=== PATIENT | female | born 1995 | race Caucasian/White ===

== ENCOUNTER 2019-04-05 09:39 | Emergency (ER) | payer OTHER, SELFPAY ==
--- NOTE | 2019-04-05 09:51 | ED.GENADULT ---
HPI - General Adult General Chief complaint: Upper Respiratory Infection Stated complaint: Cough,Fever Time Seen by Provider: 04/05/19 10:07 Source: patient and RN notes reviewed Mode of arrival: ambulatory Limitations: no limitations History of Present Illness HPI narrative: This patient onset of a cough yesterday evening on 04/04/2019. She has had cough productive of phlegm which is yellow-green. She has had no chest pain or shortness of breath. She had a fever last night to 100 degrees. She took Tylenol it did bring it down. She is 16 weeks . She has not had any ear pain or drainage from the ears. She has had no nasal drainage. She has had no sore throat. She is had no rashes. There is been no nausea, no vomiting, no diarrhea. She has had no hematuria, no dysuria, no pyuria. She has had no rashes. She has had exposure to her fianc? who tested positive for influenza yesterday. She does not know the type of influenza he was diagnosed as having. She was given a prescription for Tamiflu yesterday. She has not been traveling. No other exposure to anyone with strep throat, mono, influenza, bronchitis, pneumonia that they are aware of. Related Data Home Medications Medication Instructions Recorded Confirmed oseltamivir [Tamiflu] 75 mg PO DAILY 04/05/19 04/05/19 Allergies Allergy/AdvReac Type Severity Reaction Status Date / Time hydrocodone Allergy Unknown Unknown Verified 04/05/19 10:15 Review of Systems Review of Systems: Narrative: CONSTITUTIONAL: Denies fever, chills, or sweats. EYES: Denies visual changes, redness, or discharge. ENT: Denies rhinorrhea, congestion, sore throat, or otalgia. CARDIOVASCULAR: Denies chest pain, palpitations, or edema. RESPIRATORY: Denies cough or dyspnea. GASTROINTESTINAL: Denies abdominal pain, nausea, vomiting, or diarrhea. GENITOURINARY: Denies dysuria or hematuria. SKIN: Denies rash or itching. MUSCULOSKELETAL: Denies back pain, joint pain, or myalgia. NEUROLOGIC: Denies headache, numbness, or weakness. PSYCHIATRIC: Denies anxiety or depression. Noncontributory except as pertains to the past medical history and history of present illness. [facility] Past Medical History Medical History (Updated 04/05/19 @ 10:21 by Jd Marie MD) Depression Kidney disease Kidney stones, calcium oxalate PTSD (post-traumatic stress disorder) Surgical History Surgical History (Updated 02/23/19 @ 12:28 by Jacquelyn Payton [facility]) H/O lithotripsy History of appendectomy Social History Social History Smoking status: Never smoker Smoking end date: 02/25/14 Alcohol intake: never Gender identity (if verbalized by the patient): Female Comments At time of signature, I have reviewed and agree with nursing past medical, surgical, social, and family history.Please see nursing chart for further information. There is no relevant family history pertinent to the presenting complaint. Exam Narrative: Exam Narrative: GENERAL: Well-appearing, well-nourished, and in no acute distress. HEAD: Normocephalic, atraumatic. EYES: PERRLA and EOMI. EARS: TM's clear bilaterally and the canals are clear. NOSE: Nares clear, no rhinorrhea or epistaxis. THROAT:Mucous membranes moist.Oropharynx normal without erythema or exudates. NECK: Supple. No adenopathy of the neck, supraclavicular, axillary, or inguinal areas. RESPIRATORY: No respiratory distress. Airway patent. Respirations non-labored. H the lungs have rhonchi in the upper and in the midlung mary but not the bases. There are no wheezes, no rales, no retraction and no use accessory muscle respirations. She is not cyanotic and not dyspneic. Her pulse ox on room air is 100% current temperature is 98.9.s, HEART: Regular rate and rhythm. No murmur heard. Normal peripheral pulses. ABDOMEN: Soft, nontender, nondistended, normal active bowel sounds.No masses. No rebound or guarding, No orga
[2019-04-05 09:53] VITALS: BP 125/69; PULSE 93; RESP 16; TEMP 37.2; O2SAT 100
== END 2019-04-05 10:26 | disposition home or self-care (01) ==
PROVIDERS: Emergency Provider Family Medicine; PCP Nurse Practitioner Family
DX: J40 Bronchitis, not specified as acute or chronic (principal)
CPT/HCPCS: 87804; 99213; G0463

== ENCOUNTER 2019-09-11 12:40 | Outpatient (RCR) | payer OTHER, SELFPAY ==
[2019-08-06 16:29] VITALS: BP 125/63; PULSE 65
[2019-08-18 11:15] VITALS: BP 133/83; PULSE 70
[2019-08-25 11:15] VITALS: BP 124/79; PULSE 77
[2019-09-04 12:56] VITALS: BP 117/73; PULSE 84
[2019-09-08 11:33] VITALS: BP 129/81; PULSE 74
--- NOTE | ~2019-09-11 | US_ITS ---
EXAMINATION: US OB limited DATE: 09/04/2019 13:14 INDICATION: Gestational diabetes. Third trimester. TECHNIQUE: Real-time ultrasound of the pelvis was performed. COMPARISON: Ultrasound 08/25/2019 FINDINGS: There is a single fetus in vertex presentation. The placenta is anterior and fundal. heart rat e is 136 beats per minute (bpm). The amniotic fluid index is 8.0 cm, which is normal. IMPRESSION: 1. Single living fetus in vertex presentation. Reviewed, dictated and finalized at location A.
--- NOTE | ~2019-09-11 | US_ITS ---
EXAMINATION: US OB limited w BPP DATE: 08/25/2019 11:40 INDICATION: Maternal gestational diabetes during third trimester of TECHNIQUE: Real-time pelvic ultrasound was performed. The interpreting radiologist was not present fo r the study. COMPARISON: 08/13/2019 FINDINGS: There is a single living fetus in vertex presentation. The placenta is anterior fundal. heart rate is 129 beats per minute (bpm). Normal amniotic fluid index of 2 separate assessments of 7.9 cm a nd 8.7 cm for a mean of 8.3 cm (5th%-95%: 7.7-24.9 cm at 36 weeks estimated gestational age) Biophysical profile performed by the technologist: breathing (30 sec sustained breathing in 30 minutes): 2 out of 2 movement (3 gross body movements in 30 minutes): 2 out of 2 tone (one episode of jnhlxco-qfqrmfmsk-qprqxnu limb movement): 2 out of 2 Amniotic fluid pocket (2 cm): 2 out of 2 Total score: 8 out of 8 IMPRESSION: 1. Single living fetus in vertex presentation with heart rate of 129 bpm. 2. Biophysical profile 8 out of 8. Reviewed, dictated and finalized at location A.
--- NOTE | ~2019-09-11 | US_ITS ---
EXAMINATION: US OB limited DATE: 08/13/2019 15:31 INDICATION: Gestational diabetes, amniotic fluid assessment, third trimester TECHNIQUE: Real-time ultrasound of the pelvis was performed. The interpreting radiologist was not pre sent for the study. COMPARISON: None. FINDINGS: There is a single living fetus in vertex presentation. The placenta is anterior. card iac activity and movement are noted. heart rate is 171 beats per minute (bpm). The amniot ic fluid index is 9.8 cm which is normal. IMPRESSION: 1. Single living fetus in vertex presentation. 2. Normal amniotic fluid index. Reviewed, dictated and finalized at location A.
--- NOTE | ~2019-09-11 | US_ITS ---
US OB limited 09/11/2019 13:59 Indication: Oligohydramnios Procedure: High-resolution Limited obstetrical ultrasound Comparison: 09/04/2019 Findings: There is a single living intrauterine in vertex presentation. heart rate 15 4 BPM. Amniotic fluid index is normal measuring 8.6 cm (normal range 7.3-23.9 cm). Placenta is anteri or without previa. Impression: 1: Single living intrauterine in vertex. 2: Normal GORGE measures 8.6 cm. Reviewed, dictated and finalized at location B. Impression: 1: Single living intrauterine in vertex. 2: Normal GORGE measures 8.6 cm.
[2019-09-11 13:35] VITALS: BP 133/85; PULSE 76
== END 2019-09-14 07:58 | disposition home or self-care (01) ==
LOC: ANHOBOP 12:40
PROVIDERS: PCP Nurse Practitioner Family; Visit Provider Obstetrics & Gynecology
DX: O24.419 Gestational diabetes mellitus in pregnancy, unspecified control (principal); Z3A.33 33 weeks gestation of pregnancy; Z3A.34 34 weeks gestation of pregnancy; Z3A.35 35 weeks gestation of pregnancy; Z3A.36 36 weeks gestation of pregnancy; Z3A.37 37 weeks gestation of pregnancy; Z3A.38 38 weeks gestation of pregnancy
CPT/HCPCS: 59025; 76815; 76819

== ENCOUNTER 2019-09-13 18:19 | Inpatient (IN) | payer OTHER, SELFPAY ==
[2019-09-13] VITALS (10 sets, daily range): BP systolic 116–130; BP diastolic 73–90; PULSE 63–85; TEMP 36.1–36.3; BMI 31.8
--- NOTE | 2019-09-13 18:32 | LDADM ---
This patient, Lise Zafar, was admitted to Labor/Delivery/Recovery 107 on 09/13/19 at 18:19. Plans for labor, pain management and were discussed with patient. Patient/family oriented to hospital policies and general routines including ID bracelet, bed and alarms, visiting hours, pain management, procedures, bathroom and other care routines, personal items, smoking policy, room service/diet and guest tray routines, security routines, and visiting hours. Patient/Family are encouraged to report perceived risks to care and to ask questions if they do not understand what they are told or what they should do. See OBIX for further documentation.
[2019-09-13 19:00] LABS: Glucose Point of Care 78 (65-105)
[2019-09-13 19:02] LABS: Basophils Percent Auto 0.3 % (0.2-1.2); Eosinophils Percent Auto 0.2 % (0-4.4); Hematocrit 31.2 % (37.0-47.0); Hemoglobin 10.7 g/dL (12.0-15.0); Immature Granulocyte Absolute 0.05 K/mm3 (0.00-0.031); Immature Granulocyte Percent A 0.6 % (0-0.5); Lymphocytes Absolute Auto 1.45 K/mm3 (0.9-3.2); Lymphocytes Percent Auto 16.3 % (18.3-44.2); Mean Corpuscular HGB Conc 34.3 g/dl (32-36); Mean Corpuscular Volume 90.4 fl (80-100); Mean Platelet Volume 10.4 fl (7.4-10.4); Monocytes Absolute Auto 0.5 K/mm3 (0.1-0.6); Monocytes Percent Auto 6.1 % (2.6-8.5); Neutrophils Absolute Auto 6.8 K/mm3 (1.3-6.7); Neutrophils Percent Auto 76.5 % (45.5-73.1); Platelet Count Result 184 k/mm3 (150-375); Red Blood Count 3.45 M/mm3 (4.2-5.4); Red Cell Distribution Width 13.7 % (11.5-14.5); White Blood Count 8.9 K/mm3 (4.5-10.0)
[2019-09-13] MEDS: DINOPROSTONE 10 MG VAG INSERT VAGINAL (19:06)
[2019-09-13 19:55] LABS: HIV 1/2 Ab P24 Ag Result Negative (Negative)
[2019-09-13 23:02] LABS: Glucose Point of Care 111 (65-105)
[2019-09-14] VITALS (37 sets, daily range): BP systolic 114–154; BP diastolic 48–90; PULSE 47–250; RESP 18–20; TEMP 36.2–36.8; O2SAT 88–100
[2019-09-14 02:36] LABS: Glucose Point of Care 114 (65-105)
[2019-09-14] MEDS: LACTATED RINGERS 1,000 ML 125 ML IV CONT ×2 (03:27→05:48)
--- NOTE | 2019-09-14 03:47 | WPDANESEPP ---
Anes - Eval Pre Procedure Procedure: Labor epidural Date/Time: 09/14/19 03:47 Surgeon: sammy Preop Diagnosis: abd pain with contractions Pre Op Diagnosis: IOL Patient Data Age: 24 Gender: F Height: 5 ft 2 in Weight: 79 kg Last Vital Signs Temp 97.5 F L 09/14/19 03:39 Pulse 67 09/14/19 02:34 BP 121/64 09/14/19 02:34 Allergies Allergy/AdvReac Type Severity Reaction Status Date / Time hydrocodone Allergy Severe Hives Verified 09/08/19 10:26 Home Medications Medication Instructions Recorded Confirmed Type blood sugar diagnostic #100 each 07/23/19 09/13/19 Rx blood-glucose meter #1 each 07/23/19 09/13/19 Rx lancets 32 gauge #100 each 07/23/19 09/13/19 Rx PNV cmb#95-ferrous fumarate-FA 1 tablet PO DAILY 08/24/19 09/13/19 History [] docusate sodium [Colace] 100 mg PO DAILY 08/24/19 09/13/19 History ferrous sulfate [Iron (ferrous 325 mg PO DAILY 08/24/19 09/13/19 History sulfate)] inulin [Fiber Gummies] 1 g PO DAILY 08/24/19 09/13/19 History Laboratory Tests 09/13/19 09/13/19 09/13/19 18:52 18:52 18:52 WBC 8.9 K/mm3 K/mm3 (4.5-10.0) RBC 3.45 M/mm3 L M/mm3 (4.2-5.4) Hgb 10.7 g/dL L g/dL (12.0-15.0) Hct 31.2 % L % (37.0-47.0) MCV 90.4 fl fl (80-100) MCH 31.0 pg pg (26-34) MCHC 34.3 g/dl g/dl (32-36) RDW 13.7 % % (11.5-14.5) Plt Count 184 k/mm3 k/mm3 (150-375) MPV 10.4 fl fl (7.4-10.4) Immature Gran % (Auto) 0.6 % H % (0-0.5) Neut % (Auto) 76.5 % H % (45.5-73.1) Lymph % (Auto) 16.3 % L % (18.3-44.2) Gage % (Auto) 6.1 % % (2.6-8.5) Eos % (Auto) 0.2 % % (0-4.4) Baso % (Auto) 0.3 % % (0.2-1.2) Lymph # (Auto) 1.45 K/mm3 K/mm3 (0.9-3.2) Gage # (Auto) 0.5 K/mm3 K/mm3 (0.1-0.6) Eos # (Auto) 0.0 K/mm3 K/mm3 (0-0.3) Baso # (Auto) 0.0 K/mm3 K/mm3 (0.0-0.1) Abs Immat Gran (auto) 0.05 K/mm3 H K/mm3 (0.00-0.031) Absolute Neuts (auto) 6.8 K/mm3 H K/mm3 (1.3-6.7) Absolute Nucleated RBC 0.0 K/mm3 K/mm3 (0.0-0.012) Nucleated RBC % 0.0 % % (0.0-0.2) POC Capillary Glucose RPR Pending HIV 1&2 Ab/P24 Ag 4thGn Negative (Negative) Blood Type Antibody Screen 09/13/19 09/13/19 09/13/19 18:52 18:55 22:59 WBC RBC Hgb Hct MCV MCH MCHC RDW Plt Count MPV Immature Gran % (Auto) Neut % (Auto) Lymph % (Auto) Gage % (Auto) Eos % (Auto) Baso % (Auto) Lymph # (Auto) Gage # (Auto) Eos # (Auto) Baso # (Auto) Abs Immat Gran (auto) Absolute Neuts (auto) Absolute Nucleated RBC Nucleated RBC % POC Capillary Glucose 78 mg/dl mg/dl 111 mg/dl H mg/dl (65-105) (65-105) RPR HIV 1&2 Ab/P24 Ag 4thGn Blood Type O Positive Antibody Screen Negative 09/14/19 02:30 WBC RBC Hgb Hct MCV MCH MCHC RDW Plt Count MPV Immature Gran % (Auto) Neut % (Auto) Lymph % (Auto) Gage % (Auto) Eos % (Auto) Baso % (Auto) Lymph # (Auto) Gage # (Auto) Eos # (Auto) Baso # (Auto) Abs Immat Gran (auto) Absolute Neuts (auto) Absolute Nucleated RBC Nucleated RBC % POC Capillary Glucose 114 mg/dl H mg/dl (65-105) RPR HIV 1&2 Ab/P24 Ag 4thGn Blood Type Antibody Screen Patient hx anesthesia problems: none Family hx anesthesia problems: none [facility] Past Medical Hist
[2019-09-14] MEDS: OXYTOCIN 30 UNITS/NS 500 ML 30 UNITS/500 ML BAG IV CONT (04:10)
[2019-09-14] MEDS: OXYTOCIN 30 UNITS/NS 500 ML 30 UNITS/500 ML BAG 125 UNITS IV CONT (04:49)
--- NOTE | 2019-09-14 05:20 | PM.IMHP ---
H&P: HPI History of Present Illness Chief complaint: IOL Narrative: Lise Zafar is a 24 year old female at 39 weeks admitted for MIL. She has a history of gestational diabetes. Was not compliant with fingersticks and recording blood sugars. The values she had done were normal values. 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 The FOC did not get tested. PNC also significant for history of kidney stones resulting in pyelonephritis. She did not have any stones during . She has a history of PTSD. Did well during . No medications during . She did have nausea and vomiting of which persisted occasionally throughout . She did have low weight gain. Serial ultrasounds showed adequate growth. surveillance has been reassuring. Review of Systems Review of Systems: All systems reviewed & are unremarkable except as noted in HPI and below Constitutional: Constitutional: Reports no additional constitutional complaints and Denies headache(s) Eyes: Eyes: Denies spots in vision ENT: Reports system reviewed and no additional complaints, except as documented and Denies headache(s) Cardiovascular: Cardiovascular: Denies chest pain and Denies dyspnea Respiratory: Respiratory: Denies dyspnea Gastrointestinal: Gastrointestinal: Reports no additional gastrointestinal complaints Genitourinary: Genitourinary: Reports amenorrhea Musculoskeletal: Musculoskeletal: Reports no additional musculoskeletal complaints Integumentary/Breasts: Skin/Breast: Denies breast mass and Denies rash Neurologic: Denies headache(s) Psychiatric: Psychiatric: Reports no additional psychiatric complaints [facility] Past Medical History Medical History Depression Gestational diabetes Kidney disease Kidney stones, calcium oxalate PTSD (post-traumatic stress disorder) Surgical History Surgical History H/O lithotripsy History of appendectomy Family History Family History Father Family history of elevated blood lipids Cerebrovascular accident Family history of diabetes mellitus in first degree relative Family history of coronary artery disease Diabetes mellitus Hypertension Acute myocardial infarction Mother Family history of elevated blood lipids Family history of multiple sclerosis Hypertension Grandparent Carcinoma of colon Diabetes mellitus Family history of malignant neoplasm of male breast Sibling Asthma Family history of chronic obstructive pulmonary disease Family history of seizure disorder Other Family history of allergic disorder Family history of malignant neoplasm Social History Social History Smoking status: Never smoker Second hand tobacco smoke exposure: Yes (FOB vapes) Smoking end date: 02/25/14 Alcohol intake: never Substance use: never Gender identity (if verbalized by the patient): Female Spiritual care concerns: No Meds Home Medications and Allergies Home Medications Medication Instructions Recorded Confirmed Type blood sugar diagnostic #100 each 07/23/19 09/13/19 Rx blood-glucose meter #1 each 07/23/19 09/13/19 Rx lancets 32 gauge #100 each 07/23/19 09/13/19 Rx PNV cmb#95-ferrous fumarate-FA 1 tablet PO DAILY 08/24/19 09/13/19 History [] docusate sodium [Colace] 100 mg PO DAILY 08/24/19 09/13/19 History ferrous sulfate [Iron (ferrous 325 mg PO DAILY 08/24/19 09/13/19 History sulfate)] inulin [Fiber Gummies] 1 g PO DAILY 08/24/19 09/13/19 History Allergies Allergy/AdvReac Type Severity Reaction Status Date / Time hydrocodone Allergy Severe Hives Verified 09/08/19 10:26 Vital Signs Vital Signs - 24 hr 09/13/19 18:30 09/13/19 18:44 09/13/19 18:46 Temperature 97.3 F L Pulse Rate 85 82 Blood Pressu
--- NOTE | 2019-09-14 05:23 | PM.OBPRVD ---
OB - Delivery Note Procedure Delivery date: 09/14/19 Procedure: Spontaneous vaginal delivery events: Gestational Diabetes Intrapartal events: Precipitous Labor < 3 hours Induction method: per misoprostol protocol Delivery monitor: external FHT Route of delivery: Laceration description: Perineal - 2nd Degree Delivery repair: vicryl (3.0 vicryl) Specimen: No Estimated blood loss (mL): 300 Anesthesia type: Local Disposition: floor Complications: None Narrative: Patient was admitted for cervidil induction. She progressed to 4 cm and dilated to complete in less than an hour. She delvered a female , nurse assisted delivery. She then delivered the placenta spontaneously. Placenta was inspected and intact. Her perineum was evaluated. She was given adequate lidocaine subcutaneously. She did sustain a second degree perineal laceration which was repaired with 3.0 vicryl. The cervix was inspected due to small ooze of blood. Patient did not tolerate exam and no cervical lacerations were visualized. Uterine massage was applied and some clots delivered. The lower uterine segment was cleared of clots. She was then given 0.2 mg Methergine. Uterine tone improved but got boggy and she continued to have a slow ooze. The lower uterine segment was cleared a large amount of clot and uterus massaged and she was given 1000mcg cytotec. The lochia decreased mildly. The EBL was estimated total with delivery and bleeding at 700cc. She was given TXA 1gm. The bleeding did improve and she was monitored on L and D. Angela Baby Date of : 09/14/19 Time of : 04:03 Weeks of gestation at delivery: 39 gender: Female Weight (pounds): 6 Weight (ounces): 14 presentation: vertex Placenta delivery description: Spontaneous score one minute: 8 score five minutes: 9
[2019-09-14] MEDS: METHYLERGONOVINE MALEATE 0.2 MG/ML VIAL IM (05:33)
[2019-09-14] MEDS: miSOPROStol 200 MCG TABLET 1000 MCG RECTAL (05:40)
[2019-09-14] MEDS: TRANEXAMIC ACID 1,000 MG/10 ML AMPUL 1000 MG IV PUSH (05:59)
[2019-09-14 06:16] LABS: Basophils Percent Auto 0.3 % (0.2-1.2); Eosinophils Percent Auto 0.1 % (0-4.4); Hematocrit 33.3 % (37.0-47.0); Hemoglobin 11.2 g/dL (12.0-15.0); Immature Granulocyte Absolute 0.05 K/mm3 (0.00-0.031); Immature Granulocyte Percent A 0.4 % (0-0.5); Lymphocytes Absolute Auto 1.19 K/mm3 (0.9-3.2); Lymphocytes Percent Auto 10.1 % (18.3-44.2); Mean Corpuscular HGB Conc 33.6 g/dl (32-36); Mean Corpuscular Hemoglobin 30.7 pg (26-34); Mean Corpuscular Volume 91.2 fl (80-100); Mean Platelet Volume 10.4 fl (7.4-10.4); Monocytes Absolute Auto 0.5 K/mm3 (0.1-0.6); Monocytes Percent Auto 4.4 % (2.6-8.5); Neutrophils Absolute Auto 9.9 K/mm3 (1.3-6.7); Neutrophils Percent Auto 84.7 % (45.5-73.1); Platelet Count Result 172 k/mm3 (150-375); Red Blood Count 3.65 M/mm3 (4.2-5.4); Red Cell Distribution Width 13.8 % (11.5-14.5); White Blood Count 11.7 K/mm3 (4.5-10.0)
[2019-09-14 06:28] LABS: Prothrombin Time 12.7 Seconds (11.1-14.7)
[2019-09-14 06:32] LABS: D Dimer 1.88 ug/mL (<0.48)
[2019-09-14 06:35] LABS: Fibrinogen 248 mg/dl (215-510)
[2019-09-14] MEDS: ONDANSETRON INJ 4 MG/2 ML VIAL IV PUSH (07:44)
[2019-09-14 08:50] LABS: Rapid Plasma Reagin Non-Reactive (NonReactive)
--- NOTE | 2019-09-14 09:05 | PC.NURSE ---
Patient transferred to post room #281 via wheelchair. Support person present. Oriented to unit, room, information board, rooming in, admission packet and security measures. Patient verbalizes understanding.
[2019-09-14] MEDS: BENZOCAINE 20% AER SPR (*SP) 56 GM CAN 1 SPRAY TOPICAL (09:11)
[2019-09-14] MEDS: WITCH HAZEL 40 PADS 1 PAD TOPICAL (09:11)
[2019-09-14] MEDS: IBUPROFEN 600 MG TABLET PO ×2 (09:11→19:15)
[2019-09-14] MEDS: ACETAMINOPHEN 325 MG TABLET 650 MG PO ×2 (13:50→23:12)
[2019-09-14] MEDS: MULTIVIT/MIN/PREN/FOL AC/IRON TABLET 1 TAB PO (13:50)
--- NOTE | 2019-09-14 14:10 | PC.NURSE ---
Consulted with patient, mother reports she bottle fed first two feedings. Mother discussed attempting with first child and did not have a good milk supply and switched quickly to bottle feeding. FOB desires mother to breastfeed, mother reports she is fine with formula feeding. Reviewed feeding cues, frequencies, duration of feedings, feeding elimination flow sheet, and signs of adequate intake. Demonstrated stimulation techniques to wake infant for feeding. Assisted with infant to breast. Reviewed positioning/alignment in cross cradle, holding breast in U hold and guided asymmetrical latch on. Discussed rational for each. Infant made several eager attempts to latch and was unable to draw nipple in deeply. Mother worked with attempting for 5+ minutes and then requested infant be formula fed. Discussed options to initiate pumping, mother will wait for pumping at this time. Reviewed stimulation of milk supply. Nipple care reviewed. Instructed mother to call out for RN assistance if she is unable to latch infant for feeding or she has discomfort with nursing. Instructed feeding should be initiated three hours from start of last feeding for breast and 4 hours for bottle or if feeding cues are noted before. Mother voiced understanding of information shared.
[2019-09-15] MEDS: SIMETHICONE 80 MG TAB.CHEW PO (05:02)
[2019-09-15] MEDS: IBUPROFEN 600 MG TABLET PO ×2 (05:02→11:26)
[2019-09-15] MEDS: TETANUS,DIPHTHERIA,AC PERTUSSIS ADULT (0.5 ML) BOOSTRIX IM (05:03)
[2019-09-15 05:25] LABS: Hematocrit 25.9 % (37.0-47.0); Hemoglobin 8.7 g/dL (12.0-15.0)
--- NOTE | 2019-09-15 07:45 | PM.OBPNVD ---
OB - PN: Subj Subjective Date/time seen: 09/15/19 07:45 She is ambulating well. She is bottle and breast feeding. She desires to go home today. Patient comments: tolerating diet and other (Decreasing lochia.) Stevenson baby status: doing well OB - PN: Obj Data Labs CBC & Chem 7: 09/15/19 05:01 Labs: Laboratory Results - last 24 hr 09/13/19 09/15/19 18:52 05:01 Hgb 8.7 L Hct 25.9 L RPR Non-reactive OB - PN A/P Plan day: 1 Plan: routine care Comments: Patient doing well. Asymptomatic anemia. She is doing well. Discharge home today when baby is ready. Discharge precautions discussed. Time Spent With Patient Time: Total time spent is greater than 50% in coordination of care (as documented) at patient's floor/unit and/or counseling patient: Review of Systems Review of Systems: All systems reviewed & are unremarkable except as noted in HPI and below Constitutional: Constitutional: Reports no additional constitutional complaints Cardiovascular: Cardiovascular: Denies dyspnea Respiratory: Respiratory: Denies dyspnea Gastrointestinal: Gastrointestinal: Reports no additional gastrointestinal complaints and Denies abdominal pain Genitourinary: Genitourinary: Reports no additional female genitourinary complaints Exam Const: General: no acute distress, alert and awake Resp: Effort & Inspection: normal respiratory effort GI: GI Palp: No Tenderness to palpation present (GI) Other: Fundus nontender, below umbilicus Psych: Appearance: grossly normal Affect: normal affect Other: Abd: fundus firm below umbilicus, nontender Perineum: healing Ext: nontender
[2019-09-15] MEDS: POLYSACCHARIDE IRON COMPLEX 150 MG CAPSULE PO (07:52)
--- NOTE | 2019-09-15 07:52 | PM.OBDSVD ---
DS: Admitting Diagnosis Admitting Diagnosis Admitting Diagnosis: Gestational diabetes mellitus in , unspecified control DS: Discharge Diagnosis Discharge Diagnosis (1) Encounter for induction of labor: Code(s): Z34.90 - Encounter for supervision of normal , unspecified, unspecified trimester Status: Acute OB - DS: Summary OB Procedures : NST OB Procedures Intrapartum: Spontaneous Vag Delivery OB Procedures: : None Time Spent with Patient Time attestation: Total time spent providing and/or coordinating discharge services: Exam Psych: Affect: normal affect Other: Abd: fundus firm below umbilicus, nontender Perineum: healing Ext: nontender DS: Data Data Completed and Pending Labs on day of discharge: Labs from last 24 hours 09/15/19 09/13/19 05:01 18:52 Hgb 8.7 L Hct 25.9 L RPR Non-reactive Discharge Plan Discharge Attending physician on discharge: Miko Casas Discharging Clinician: Miko Casas Anticipated Discharge Date/Time: 09/15/19 10:49 Patient Disposition: Home, Self-Care Activity: may shower and pelvic rest Diet: regular Discharge Instructions: Pelvic rest for 4-6 weeks, until after visit. Take daily PNV and daily iron supplement. Call for fever, saturating more than a pad an hour, leg redness, pain or swelling. May take over the counter Tylenol, or Extra strength Tylenol as needed for pain. Patient Instructions: Antibiotic Form, How to Stop Smoking (DC) Stand Alone Forms: General Discharge Information Follow-up/Referrals: Miko Casas MD [Physician] - 4 Weeks Discharge Medications: No Action (DME) blood-glucose meter [Blood Glucose Monitoring] Kit See Rx Instructions .ROUTE .MEDSUPPLY Qty: 1 RF: 0 (DME) blood sugar diagnostic [Blood Glucose Test] Strip See Rx Instructions .ROUTE .MEDSUPPLY Qty: 100 RF: 3 (DME) lancets 32 gauge misc See Rx Instructions .ROUTE .MEDSUPPLY Qty: 100 RF: 3 ferrous sulfate [Iron (ferrous sulfate)] 325 mg (65 mg iron) Tablet 325 mg PO DAILY RF: 0 docusate sodium [Colace] 100 mg Capsule 100 mg PO DAILY RF: 0 PNV cmb#95-ferrous fumarate-FA [] 28 mg iron- 800 mcg Tablet 1 tablet PO DAILY RF: 0 Fiber Gummies 2 gram Tablet,Chewable 1 g PO DAILY RF: 0 Date of admission: 09/13/19 18:19 Primary Care Provider: Franco,Yvan Admitting Provider: Miko Casas Attending physician on admission: Miko Casas
[2019-09-15] MEDS: DOCUSATE SODIUM 100 MG CAPSULE PO (07:53)
[2019-09-15] MEDS: ACETAMINOPHEN 325 MG TABLET 650 MG PO (07:53)
[2019-09-15] MEDS: MULTIVIT/MIN/PREN/FOL AC/IRON TABLET 1 TAB PO (07:53)
[2019-09-15 07:55] VITALS: BP 127/79; PULSE 60; RESP 18; TEMP 36; O2SAT 99
--- NOTE | 2019-09-15 10:40 | PC.NURSE ---
Consult with pt., mother reports she wishes to pump and bottle feed. Mother does not want to put infant to breast. Breast pump provided due to her wishes, thru her insurance. Instructions given on breast pump care and usage, pumping schedule, nipple care, and collection and storage of breast milk. Encouraged [id number], breast massage and manual expression to stimulate supply. Pumping log provided and reviewed. Assessed patient for correct flange size, placement and draw. Patient verbalizes and demonstrates understanding of instructions.
[2019-09-15] MEDS: MEASLES,MUMPS,RUBELLA VACCINE 0.5 ML VIAL SUB-Q (11:26)
--- NOTE | 2019-09-15 12:57 | PC.NURSE ---
Patient viewed the discharge video Mother & Baby Care, The First Two Weeks . Patient was given the opportunity and encouraged to ask questions. Patient verbalized understanding of information shared and has been given the mother/baby guide for home reference.
[2019-09-17 11:29] VITALS: BP 127/82; PULSE 71; RESP 20; TEMP 36.7; O2SAT 100
== END 2019-09-15 15:07 | disposition home or self-care (01) | DRG 560 ==
LOC: ANHLDR 18:38 → ANHOB2 09-14 09:13
PROVIDERS: Admitting Provider Obstetrics & Gynecology; PCP Nurse Practitioner Family; Visit Provider Obstetrics & Gynecology
DX: O24.420 Gestational diabetes mellitus in childbirth, diet controlled (principal); Z37.0 Single live birth; Z3A.39 39 weeks gestation of pregnancy; O62.3 Precipitate labor; O70.1 Second degree perineal laceration during delivery; O99.344 Other mental disorders complicating childbirth; F32.9 Major depressive disorder, single episode, unspecified; F43.10 Post-traumatic stress disorder, unspecified; Z14.1 Cystic fibrosis carrier; Z87.442 Personal history of urinary calculi
CPT/HCPCS: 36415; 85014; 85018; 85025; 85380; 85384; 85610; 85730; 86592; 86703; 86850; 86900; 86901; 90710; 90715; A9270; G0432; J2210; J2405; J2590; J2795; J3010; J7120

== ENCOUNTER 2020-04-07 13:41 | Emergency (ER) | payer OTHER, SELFPAY ==
--- NOTE | ~2020-04-07 | XR_ITS ---
EXAMINATION: XR chest 2V DATE: 04/07/2020 14:19 INDICATION: Cough TECHNIQUE: PA and lateral views of the chest are obtained. COMPARISON: None available FINDINGS: There are minimal airspace opacities of the right lower lobe. There is no pleural effusion or pneumothorax. The cardiomediastinal silhouette is normal. The visualized bones and soft tissues ar e unremarkable. IMPRESSION: 1. Minimal right lower lobe airspace opacity, consistent with atelectasis versus pneumonia. Reviewed, dictated and finalized at location A. [facility] IMPRESSION: 1. Minimal right lower lobe airspace opacity, consistent with atelectasis versu s pneumonia.
--- NOTE | 2020-04-07 13:43 | ED.GENADULT ---
HPI - General Adult General Chief complaint: Upper Respiratory Infection Stated complaint: cough/heavy chest/stuffy nose Time Seen by Provider: 04/07/20 13:43 Source: patient Mode of arrival: ambulatory Limitations: no limitations History of Present Illness HPI narrative: 25-year-old female patient presents to the [facility] with complaints of cold symptoms for the past 6 days. Patient states she has had a cough, sore throat, congestion, runny nose. Patient denies fevers, body aches or chills. Patient denies any abdominal pain, nausea, vomiting or diarrhea. Patient states she has tried [id number] sinus and congestion medication along with some cough syrup which do temporarily relieve her symptoms. Patient did have Covid in December 2019. Related Data Allergies Allergy/AdvReac Type Severity Reaction Status Date / Time hydrocodone Allergy Severe Hives Verified 10/09/19 12:20 Review of Systems Review of Systems: Narrative: CONSTITUTIONAL: Denies fever, chills, or sweats. EYES: Denies visual changes, redness, or discharge. ENT: Positive rhinorrhea, congestion, sore throat, denies otalgia. CARDIOVASCULAR: Denies chest pain, palpitations, or edema. RESPIRATORY: Positive cough, denies dyspnea. GASTROINTESTINAL: Denies abdominal pain, nausea, vomiting, or diarrhea. GENITOURINARY: Denies dysuria or hematuria. SKIN: Denies rash or itching. MUSCULOSKELETAL: Denies back pain, joint pain, or myalgia. NEUROLOGIC: Denies headache, numbness, or weakness. PSYCHIATRIC: Denies anxiety or depression. [facility] Past Medical History Medical History (Updated 04/07/20 @ 14:26 by MICHELE Murguia) COVID-19 virus infection December 2019 Depression Gestational diabetes Kidney disease Kidney stones, calcium oxalate PTSD (post-traumatic stress disorder) Surgical History Surgical History H/O lithotripsy History of appendectomy Family History Family History Father Family history of elevated blood lipids Cerebrovascular accident Family history of diabetes mellitus in first degree relative Family history of coronary artery disease Diabetes mellitus Hypertension Acute myocardial infarction Mother Family history of elevated blood lipids Family history of multiple sclerosis Hypertension Grandparent Carcinoma of colon Diabetes mellitus Family history of malignant neoplasm of male breast Sibling Asthma Family history of chronic obstructive pulmonary disease Family history of seizure disorder Other Family history of allergic disorder Family history of malignant neoplasm Social History Social History Smoking status: Never smoker Second hand tobacco smoke exposure: Yes (FOB vapes) Smoking end date: 02/25/14 Alcohol intake: never Substance use: never Gender identity (if verbalized by the patient): Female Spiritual care concerns: No Comments At the time of my signature I agree with nursing past medical history, surgical, social, and family history. There is no relevant family history pertinent to the presenting complaint. Exam Narrative: Exam Narrative: GENERAL: Well-appearing, well-nourished, and in no acute distress. HEAD: Normocephalic, atraumatic. EYES: PERRLA and EOMI. ENT: Nares with erythema and edema noted bilaterally, no rhinorrhea or epistaxis. Mucous membranes moist. Posterior pharynx with 2+ tonsil enlargement and erythema noted. No exudates or lesions present. NECK: Supple. No lymphadenopathy CHEST: Patient has slight decreased to lung sounds noted to the right lower lobe on auscultation. No respiratory distress. No tripoding noted. Patient able talk in clear complete sentences. No obvious coughing noted at this time. HEART: Regular rate and rhythm. No murmur heard. Normal peripheral pulses. ABDOMEN: Soft, nonte
[2020-04-07 13:49] VITALS: BP 134/89; PULSE 82; RESP 12; TEMP 36.9; O2SAT 99
--- NOTE | 2020-04-07 14:12 | PCDIET ---
Report given to Cynthia APODACA
== END 2020-04-07 14:36 | disposition home or self-care (01) ==
PROVIDERS: Emergency Provider Nurse Practitioner Family; PCP Nurse Practitioner Family
DX: J18.9 Pneumonia, unspecified organism (principal); Z86.16 Personal history of COVID-19
CPT/HCPCS: 71046; 87081; 87880; 99213; G0463

== ENCOUNTER 2020-08-08 15:21 | Emergency (ER) | payer OTHER, SELFPAY ==
--- NOTE | ~2020-08-08 | US_ITS ---
EXAMINATION: US abdomen limited EXAM DATE: 08/08/2020 16:32 INDICATION: Abdominal pain abd pain. TECHNIQUE: Multiple grayscale and Doppler images of the abdomen right upper quadrant were obtained (b y a technologist who performed the scan) and subsequently reviewed. Comparison is made to prior exami nation from 09/22/2014. FINDINGS: The pancreatic head and body are normal in appearance. The pancreatic tail is not visualized. The l iver has normal echogenicity and contour. There are no focal liver lesions identified. There is no evidence of intrahepatic biliary duct dilation. Portal venous flow was seen in the hepatopedal, nor mal direction and has normal Doppler waveform. No right-sided hydronephrosis. Echogenic renal pyrami ds, consistent with medullary nephrocalcinosis. Common bile duct measures 2 mm, which is normal. The gallbladder wall is normal in thickness, with ex pected amount of distention. No sonographic evidence of pericholecystic fluid. There is no cholelit hiases. Technologist performing exam reports patient did not demonstrate sonographic Moreno's sign. Please note that this sign is less reliable in patients who have received pain medication. IMPRESSION: 1. Medullary nephrocalcinosis. No right hydronephrosis. 2. Unremarkable gallbladder, liver. Reviewed, dictated and finalized at location B.
[2020-08-08 15:38] VITALS: BP 140/72; PULSE 80; RESP 12; TEMP 36.2; O2SAT 99
[2020-08-08] MEDS: METOCLOPRAMIDE HCL INJ 10 MG/2 ML VIAL IV PUSH (16:05)
[2020-08-08] MEDS: KETOROLAC 30 MG/ML VIAL (*BKC) IV PUSH (16:05)
--- NOTE | 2020-08-08 16:13 | ED.GENADULT ---
HPI - General Adult General Chief complaint: Abdominal Pain Stated complaint: ABD PAIN X1D Time Seen by Provider: 08/08/20 15:28 Source: patient History of Present Illness HPI narrative: Patient is a 25 y/o female complaining of abdominal pain since yesterday. She describes her pain as sharp and burning. She rates her pain as 8/10. Her pain is located in epigastric area with no radiation. Eating makes her pain worse. She has some vomiting, but no diarrhea. Related Data Home Medications Medication Instructions Recorded Confirmed multivitamin 1 tablet PO DAILY 05/25/20 Allergies Allergy/AdvReac Type Severity Reaction Status Date / Time hydrocodone Allergy Severe Hives Verified 05/25/20 14:07 Review of Systems Constitutional: Constitutional: Denies chills, Denies fever(s), Denies headache(s) and Denies weakness Eyes: Eyes: Denies blurry vision ENT: Denies headache(s) and Denies neck pain Cardiovascular: Cardiovascular: Denies chest pain and Denies dyspnea Respiratory: Respiratory: Denies cough and Denies dyspnea Gastrointestinal: Gastrointestinal: Reports abdominal pain, Denies diarrhea, Reports nausea and Reports vomiting Genitourinary: Genitourinary: Denies hematuria and Denies dysuria Musculoskeletal: Musculoskeletal: Denies back pain and Denies neck pain Neurologic: Denies headache(s) and Denies weakness PMFSH Past Medical History Medical History COVID-19 virus infection December 2019 Depression Gestational diabetes History of vaginal delivery x 2 Kidney disease Kidney stones, calcium oxalate PTSD (post-traumatic stress disorder) Surgical History Surgical History H/O lithotripsy History of appendectomy Family History Family History Father Family history of elevated blood lipids Cerebrovascular accident Family history of diabetes mellitus in first degree relative Family history of coronary artery disease Diabetes mellitus Hypertension Acute myocardial infarction Mother Family history of elevated blood lipids Family history of multiple sclerosis Hypertension Grandparent Carcinoma of colon Diabetes mellitus Family history of malignant neoplasm of male breast Sibling Asthma Family history of chronic obstructive pulmonary disease Family history of seizure disorder Other Family history of allergic disorder Family history of malignant neoplasm Social History Social History Smoking status: Never smoker Second hand tobacco smoke exposure: Yes (FOB vapes) Smoking end date: 02/25/14 Alcohol intake: never Substance use: never Gender identity (if verbalized by the patient): Female Spiritual care concerns: No Exam Const: General: no acute distress and well developed Orientation/consciousness: oriented to person, oriented to place, oriented to time and patient oriented x3 HENMT: Head: normocephalic Ears: external ears normal General nose exam: Normal external nose present Eyes: General: appearance normal, both eyes and all related structures Conjunctivae: conjunctivae normal Neck: Neck: normal visual inspection and full ROM Chest: Chest palpation & inspection: normal inspection of the chest and no tenderness Resp: Effort & Inspection: normal respiratory effort Auscultation: clear to auscultation bilaterally Cardio: Rate: regular rate Rhythm: regular rhythm GI: GI Palp: Yes abdominal tenderness (epigastric) and Yes Soft to palpation Skin: General skin exam: normal color and turgor normal Neuro: General: oriented to person, oriented to place, oriented to time and patient oriented x3 Cognition (Neuro): normal cognition Extrem: General: normal to inspection, full ROM and no pedal edema Psych: Appearance: magali
[2020-08-08 16:15] LABS: Basophils Percent Auto 0.5 % (0.2-1.2); Eosinophils Absolute Auto 0.1 K/mm3 (0-0.3); Eosinophils Percent Auto 1.8 % (0-4.4); Hematocrit 37.3 % (37.0-47.0); Hemoglobin 12.4 g/dL (12.0-15.0); Immature Granulocyte Absolute 0.01 K/mm3 (0.00-0.031); Immature Granulocyte Percent A 0.1 % (0-0.5); Lymphocytes Percent Auto 28.8 % (18.3-44.2); Mean Corpuscular HGB Conc 33.2 g/dl (32-36); Mean Corpuscular Hemoglobin 29.5 pg (26-34); Mean Corpuscular Volume 88.8 fl (80-100); Monocytes Absolute Auto 0.5 K/mm3 (0.1-0.6); Monocytes Percent Auto 6.5 % (2.6-8.5); Neutrophils Absolute Auto 4.5 K/mm3 (1.3-6.7); Neutrophils Percent Auto 62.3 % (45.5-73.1); Platelet Count Result 258 k/mm3 (150-375); Red Cell Distribution Width 12.9 % (11.5-14.5); White Blood Count 7.3 K/mm3 (4.5-10.0)
[2020-08-08 16:17] LABS: Add Urine Microscopic? YES; Appearance Urine Cloudy (Clear); Bacteria Urine Trace /hpf; Bilirubin Urine Negative (Negative); Blood Urine Negative (Negative); Color Urine Straw (Yellow); Glucose Urine UA Negative (Negative); Ketones Urine Negative (Negative); Leukocyte Esterase Ur 3+ LEU/UL (Negative); Mucus Urine Rare /lpf; Nitrate Urine Negative (Negative); Protein Urine Negative (Negative); Specific Grav Ur 1.011 (1.001-1.035); Squamous Epithelial Cell Urine Many /hpf (Few); Urobilinogen Urine Negative mg/dL (<2.0); WBC Urine 51-75 /hpf
[2020-08-08 16:30] LABS: Alanine Aminotransferase 16 U/L (4-35); Albumin Level 4.2 g/dL (3.5-5.1); Alkaline Phosphatase 85 U/L (38-126); Anion Gap 10 mmol/L (8-16); Aspartate Amino Transferase 24 U/L (14-36); Bilirubin,Total 0.3 mg/dL (0.2-1.3); Blood Urea Nitrogen 15 mg/dL (7-17); Carbon Dioxide 21 mmol/L (22-30); Chloride 108 mmol/L (98-107); Estimated CRCL calculation 99 ml/min; Estimated Glomerular Filt Rate > 60; Glucose 96 mg/dL (65-105); Lipase 58 U/L (23-300); Potassium 3.8 mmol/L (3.4-5.0); Sodium 139 mmol/L (137-145)
[2020-08-08 17:48] VITALS: BP 104/71; PULSE 63; RESP 18; O2SAT 100
== END 2020-08-08 17:52 | disposition home or self-care (01) ==
PROVIDERS: Emergency Provider Emergency Medicine; PCP Nurse Practitioner Family
DX: N39.0 Urinary tract infection, site not specified (principal); R10.13 Epigastric pain; Z86.16 Personal history of COVID-19; Z87.442 Personal history of urinary calculi; N28.9 Disorder of kidney and ureter, unspecified
CPT/HCPCS: 36415; 76705; 80053; 81001; 81025; 83690; 85025; 87086; 96374; 96375; 99284; J1885; J2765

== ENCOUNTER 2020-08-27 08:05 | Emergency (ER) | payer OTHER, SELFPAY ==
[2020-08-27 08:15] VITALS: BP 122/80; PULSE 75; RESP 16; TEMP 36.1; O2SAT 100
--- NOTE | 2020-08-27 08:17 | ED.URI ---
HPI - URI/Sore Throat General Chief Complaint: Upper Respiratory Infection Stated Complaint: cough Time Seen by Provider: 08/27/20 08:17 Source: patient, RN notes reviewed and old records reviewed Mode of arrival: ambulatory Limitations: no limitations History of Present Illness HPI Narrative: 25-year-old female who presents to [facility] with complaints of 1 week duration of nasal congestion with nonproductive cough states does have some sore throat with her cough. Patient states she has had some shortness of breath for the past 3 days mainly with exertion and with coughing. Patient denies any known fevers, chills or sweats, positive for left ear discomfort also. Patient has clear lungs upon auscultation with no accessory muscle use or any tachypnea, SAO2 100% on room air. Patient has had previous COVID in December of 2019 has not received vaccinations. MD elicited complaint: cough Pertinent past history: pneumonia and other (Bronchitis, strep throat) Onset (ago): week(s) (1) Consistency: progressively worsening Able to tolerate fluids by mouth: Yes Exacerbating factors: exertion Relieving factors: nothing Context: sick contacts Associated symptoms: nasal congestion, cough and shortness of breath Treatments prior to arrival: cold medicine (Mucinex cold and flu) Related Data Allergies Allergy/AdvReac Type Severity Reaction Status Date / Time hydrocodone Allergy Severe Hives Verified 08/27/20 08:22 Review of Systems Review of Systems: Narrative: CONSTITUTIONAL: Denies fever, chills, or sweats. EYES: Denies visual changes, redness, or discharge. ENT: Positive rhinorrhea, congestion, sore throat noted with cough, left otalgia. CARDIOVASCULAR: Denies chest pain, palpitations, or edema. RESPIRATORY: Positive for cough or dyspnea with exertion and with acute coughing. GASTROINTESTINAL: Denies abdominal pain, nausea, vomiting, or diarrhea. GENITOURINARY: Denies dysuria or hematuria. SKIN: Denies rash or itching. MUSCULOSKELETAL: Denies back pain, joint pain, or myalgia. NEUROLOGIC: Denies headache, numbness, or weakness. PSYCHIATRIC: Positive history of anxiety or depression. All systems reviewed & are unremarkable except as noted in HPI and below PMFSH Past Medical History Medical History COVID-19 virus infection December 2019 Depression Gestational diabetes History of vaginal delivery x 2 Kidney disease Kidney stones, calcium oxalate PTSD (post-traumatic stress disorder) Surgical History Surgical History H/O lithotripsy History of appendectomy Family History Family History Father Family history of elevated blood lipids Cerebrovascular accident Family history of diabetes mellitus in first degree relative Family history of coronary artery disease Diabetes mellitus Hypertension Acute myocardial infarction Mother Family history of elevated blood lipids Family history of multiple sclerosis Hypertension Grandparent Carcinoma of colon Diabetes mellitus Family history of malignant neoplasm of male breast Sibling Asthma Family history of chronic obstructive pulmonary disease Family history of seizure disorder Other Family history of allergic disorder Family history of malignant neoplasm Social History Social History Smoking status: Never smoker Second hand tobacco smoke exposure: Yes (FOB vapes) Smoking end date: 02/25/14 Alcohol intake: never Substance use: never Gender identity (if verbalized by the patient): Female Spiritual care concerns: No Comments At time of signature, agree with nursing past medical, surgical, social and family history. There is no relevant family history pertinent to the presenting complaint Exam Narrative: Exam Narrative:
== END 2020-08-27 08:45 | disposition home or self-care (01) ==
PROVIDERS: Emergency Provider Registered Nurse; PCP Nurse Practitioner Family
DX: J34.9 Unspecified disorder of nose and nasal sinuses (principal); R05 Cough; Z86.16 Personal history of COVID-19
CPT/HCPCS: 87081; 87880; 99213; G0463

== ENCOUNTER → 2021-03-20 02:02 | Outpatient (CLI) | payer BC, OTHER, SELFPAY ==
[2021-03-20 19:02] LABS: SARS-CoV-2 RNA PCR Negative
== END ==
PROVIDERS: PCP Nurse Practitioner Family; Visit Provider Nurse Practitioner Family
DX: Z20.822 Contact with and (suspected) exposure to COVID-19 (principal)
CPT/HCPCS: C9803; U0003; U0005

== ENCOUNTER 2021-07-01 16:30 | Emergency (ER) | payer BC, SELFPAY ==
[2021-07-01 16:43] VITALS: BP 108/83; PULSE 95; RESP 16; TEMP 36.8; O2SAT 99
[2021-07-01 16:44] VITALS: BP 108/83; PULSE 95; RESP 16; TEMP 36.8; O2SAT 99
--- NOTE | 2021-07-01 18:01 | ED.URI ---
HPI - URI/Sore Throat General Chief Complaint: Upper Respiratory Infection Stated Complaint: sore throat Time Seen by Provider: 07/01/21 17:00 Source: patient Mode of arrival: ambulatory Limitations: no limitations History of Present Illness HPI Narrative: Ms. Martin is a 26-year-old female patient presenting to the clinic today with complaints of sore throat, nasal congestion, and cough x7 days. She reports that other members of the family are ill with the same symptoms. She says that she has had a low-grade temperature. MD elicited complaint: fever, cough, sore throat and nasal congestion Related Data Home Medications Medication Instructions Recorded Confirmed losartan 50 mg PO DAILY 07/01/21 07/01/21 Allergies Allergy/AdvReac Type Severity Reaction Status Date / Time hydrocodone Allergy Severe Hives Verified 07/01/21 16:43 Review of Systems Review of Systems: Pertinent positives per HPI. Patient denies any chills, rash, headache, visual changes, dizziness, cough, shortness of breath, chest pain, palpitations, nausea, vomiting, diarrhea, constipation, abdominal pain, or any urinary issues. [facility] Past Medical History Medical History COVID-19 virus infection December 2019 Depression Gestational diabetes History of vaginal delivery x 2 Kidney disease Kidney stones, calcium oxalate PTSD (post-traumatic stress disorder) Surgical History Surgical History H/O lithotripsy History of appendectomy Family History Family History Father Family history of elevated blood lipids Cerebrovascular accident Family history of diabetes mellitus in first degree relative Family history of coronary artery disease Diabetes mellitus Hypertension Acute myocardial infarction Mother Family history of elevated blood lipids Family history of multiple sclerosis Hypertension Grandparent Carcinoma of colon Diabetes mellitus Family history of malignant neoplasm of male breast Sibling Asthma Family history of chronic obstructive pulmonary disease Family history of seizure disorder Other Family history of allergic disorder Family history of malignant neoplasm Social History Social History Smoking status: Never smoker Second hand tobacco smoke exposure: Yes (FOB vapes) Smoking end date: 02/25/14 Alcohol intake: never Substance use: never Gender identity (if verbalized by the patient): Female Spiritual care concerns: No Comments At the time of my signature, I reviewed and agree with the nursing past medical, surgical, social, and family history. There is no relevant family history pertinent to the patient complaint. Exam Narrative: General: Well-developed, obese, in no apparent distress Head: Normocephalic, atraumatic Eyes: Pupils equally round and reactive to light bilaterally, EOM intact, sclera and conjunctive clear, no discharge, lids normal Ears: TMs intact and dull, ear canals clear, no drainage, grossly hearing normal. Nose: Nares patent, clear nasal discharge, mild inflammation, no sinus tenderness. Mouth: Oral pharynx without lesions or masses, good dentition, MMM. Oropharynx red Neck: Supple, trachea midline, no enlargement of anterior or posterior cervical nodes, no thyroid masses or goiter palpable. Cardio: Regular rate and rhythm, s1 and s2 normal, no murmur appreciated. Resp: Clear to auscultation bilaterally, no rhonchi, rales, wheezing or rubs Course Course Emergency Course: Portions of this record may have been created with voice recognition software. Level of Care: Express Care Visit Vital Signs Vital signs: Vital Signs Temperature 36.8 C 07/01/21 16:43 Pulse Rate 95 07/01/21 16:43 Respiratory R
== END 2021-07-01 18:15 | disposition home or self-care (01) ==
PROVIDERS: Emergency Provider Nurse Practitioner Family; PCP Nurse Practitioner Family
DX: J06.9 Acute upper respiratory infection, unspecified (principal)
CPT/HCPCS: 87081; 87880; 99213; G0463

== ENCOUNTER → 2021-08-01 00:31 | Outpatient (CLI) | payer BC, MEDICAID, SELFPAY ==
[2021-08-01 11:11] LABS: SARS-CoV-2 RNA PCR Negative
== END ==
PROVIDERS: PCP Nurse Practitioner Family; Visit Provider Nurse Practitioner Family
DX: Z20.822 Contact with and (suspected) exposure to COVID-19 (principal)
CPT/HCPCS: C9803; U0003; U0005

== ENCOUNTER 2022-01-20 11:19 | Emergency (ER) | payer BC, MEDICAID, SELFPAY ==
[2022-01-20 11:42] VITALS: BP 120/63; PULSE 96; RESP 18; TEMP 36.5; O2SAT 99
--- NOTE | 2022-01-20 12:39 | ED.URI ---
HPI - URI/Sore Throat General Chief Complaint: Upper Respiratory Infection Stated Complaint: Sore Throat Time Seen by Provider: 01/20/22 12:40 History of Present Illness HPI Narrative: 18-year-old female presenting for complaint of sore throat, onset yesterday. She states it feels like she is swallowing glass. She denies sick contacts. Drinking tea without relief. Endorses a headache. She denies cough, shortness of breath, wheezing, nausea, vomiting, diarrhea, fevers or chills. Related Data Home Medications Medication Instructions Recorded Confirmed montelukast 10 mg tablet 10 mg DAILY 01/20/22 01/20/22 Allergies Allergy/AdvReac Type Severity Reaction Status Date / Time hydrocodone Allergy Severe Hives Verified 01/20/22 11:53 Review of Systems Review of Systems: CONSTITUTIONAL: Denies body aches, fever, chills, or sweats. EYES: Denies visual changes, redness, or discharge. ENT: Denies rhinorrhea, congestion, or otalgia. CARDIOVASCULAR: Denies chest pain, palpitations, or edema. RESPIRATORY: Denies dyspnea. GASTROINTESTINAL: Denies abdominal pain, nausea, vomiting, or diarrhea. SKIN: Denies rash, itching, or wounds. MUSCULOSKELETAL: Denies back pain, joint pain, or myalgia. [facility] Past Medical History Medical History COVID-19 virus infection December 2019 Depression Gestational diabetes History of vaginal delivery x 2 Kidney disease Kidney stones, calcium oxalate PTSD (post-traumatic stress disorder) Surgical History Surgical History H/O lithotripsy History of appendectomy Family History Family History Father Family history of elevated blood lipids Cerebrovascular accident Family history of diabetes mellitus in first degree relative Family history of coronary artery disease Diabetes mellitus Hypertension Acute myocardial infarction Mother Family history of elevated blood lipids Family history of multiple sclerosis Hypertension Grandparent Carcinoma of colon Diabetes mellitus Family history of malignant neoplasm of male breast Sibling Asthma Family history of chronic obstructive pulmonary disease Family history of seizure disorder Other Family history of allergic disorder Family history of malignant neoplasm Social History Social History Smoking status: Never smoker Second hand tobacco smoke exposure: Yes (FOB vapes) Smoking end date: 02/25/14 Alcohol intake: never Substance use: never Gender identity (if verbalized by the patient): Female Spiritual care concerns: No Exam Narrative: GENERAL: Ill-appearing, no acute distress. EYES: conjunctivae clear ENT: Mucous membranes moist. TMs pearly ram with normal light reflex bilaterally; no tragal tenderness. Oropharynx erythematous without lesions. Tonsils enlarged 3+ without exudate. No drooling, no hoarseness, no trismus, uvula midline. No tripod positioning, hot potato voice, or soft palate swelling. NECK: Supple. Bilateral anterior cervical lymphadenopathy CHEST: Clear to auscultation, breath sounds equal. No respiratory distress, speaks in full sentences. HEART: Regular rate and rhythm. No murmur heard. SKIN: Warm, dry, no rash. NEURO: Alert and oriented x3. Course Course Emergency Course: Patient is aware of diagnosis, understands and agrees to treatment plan. Anticipatory guidance given. Patient agrees to follow-up as directed and is aware of reasons to seek care at the emergency department. Portions of this record may have been created with voice recognition software Level of Care: Express Care Visit Vital Signs Vital signs: Vital Signs Temperature 97.7 F 01/20/22 11:42 Pulse Rate 96 01/20/22 11:42 Respiratory Rate 18 01/20/22 11:42
== END 2022-01-20 12:49 | disposition home or self-care (01) ==
PROVIDERS: Emergency Provider Nurse Practitioner Family; PCP Nurse Practitioner Family
DX: J02.0 Streptococcal pharyngitis (principal)
CPT/HCPCS: 87880; 99213; G0463

== ENCOUNTER 2022-02-01 17:48 | Emergency (ER) | payer BC, MEDICAID, SELFPAY ==
[2022-02-01 17:59] VITALS: BP 122/83; PULSE 81; RESP 18; TEMP 36.4; O2SAT 100
--- NOTE | 2022-02-01 18:01 | ED.URI ---
HPI - URI/Sore Throat General Chief Complaint: Upper Respiratory Infection Stated Complaint: flu like sx Time Seen by Provider: 02/01/22 18:01 Source: patient, RN notes reviewed and old records reviewed Mode of arrival: ambulatory Limitations: no limitations History of Present Illness HPI Narrative: 26-year-old female presents to the [facility] with 3 days of cold symptoms. Both daughters have same symptoms and present to the [facility] as well. Patient is complaining of intermittent cough, headache, runny nose and body aches. Denies fevers. No treatment prior to arrival Related Data Home Medications Medication Instructions Recorded Confirmed montelukast 10 mg tablet 10 mg DAILY 01/20/22 01/20/22 quetiapine 50 mg tablet mg 02/01/22 Allergies Allergy/AdvReac Type Severity Reaction Status Date / Time hydrocodone Allergy Severe Hives Verified 02/01/22 17:51 Review of Systems Review of Systems: All systems reviewed & are unremarkable except as noted in HPI and below Constitutional: Constitutional: Reports as per HPI and Denies fever(s) Eyes: Eyes: Reports no additional eye complaints ENT: Reports as per HPI, Reports nasal congestion and Reports sore throat Cardiovascular: Cardiovascular: Reports no additional cardiovascular complaints, Denies chest pain and Denies dyspnea Respiratory: Respiratory: Reports no additional respiratory complaints, Denies chest congestion, Denies cough and Denies dyspnea Gastrointestinal: Gastrointestinal: Reports no additional gastrointestinal complaints, Denies abdominal pain, Denies nausea and Denies vomiting Musculoskeletal: Musculoskeletal: Reports no additional musculoskeletal complaints Integumentary/Breasts: Skin/Breast: Reports system reviewed and no additional complaints, except as docu Neurologic: Reports system reviewed and no additional complaints, except as documented Psychiatric: Psychiatric: Reports no additional psychiatric complaints Allergic/Immunologic: Allergic/Immunologic: Reports no additional allergic/immunologic complaints [facility] Past Medical History Medical History COVID-19 virus infection December 2019 Depression Gestational diabetes History of vaginal delivery x 2 Kidney disease Kidney stones, calcium oxalate PTSD (post-traumatic stress disorder) Surgical History Surgical History H/O lithotripsy History of appendectomy Family History Family History Father Family history of elevated blood lipids Cerebrovascular accident Family history of diabetes mellitus in first degree relative Family history of coronary artery disease Diabetes mellitus Hypertension Acute myocardial infarction Mother Family history of elevated blood lipids Family history of multiple sclerosis Hypertension Grandparent Carcinoma of colon Diabetes mellitus Family history of malignant neoplasm of male breast Sibling Asthma Family history of chronic obstructive pulmonary disease Family history of seizure disorder Other Family history of allergic disorder Family history of malignant neoplasm Social History Social History Smoking status: Never smoker Second hand tobacco smoke exposure: Yes (FOB vapes) Smoking end date: 02/25/14 Alcohol intake: never Substance use: never Gender identity (if verbalized by the patient): Female Spiritual care concerns: No Comments At the time of my signature, I reviewed and agree with the nursing past medical, surgical, social, and family history. There is no relevant family history pertinent to the patient complaint. Exam Const: General: cooperative, healthy appearing, comfortable, no acute distress, well developed, alert and well nourished Nutritional Appearance: well
== END 2022-02-01 18:26 | disposition home or self-care (01) ==
PROVIDERS: Emergency Provider Nurse Practitioner; PCP Nurse Practitioner Family
DX: J06.9 Acute upper respiratory infection, unspecified (principal); Z86.16 Personal history of COVID-19
CPT/HCPCS: 99211; G0463

== ENCOUNTER 2022-02-20 14:13 | Emergency (ER) | payer BC, MEDICAID, SELFPAY ==
[2022-02-20 14:25] VITALS: BP 117/75; PULSE 75; RESP 16; TEMP 36.6; O2SAT 100
--- NOTE | 2022-02-20 14:58 | ED.URI ---
HPI - URI/Sore Throat General Chief Complaint: Upper Respiratory Infection Stated Complaint: tightness of chest; cough Time Seen by Provider: 02/20/22 14:25 Source: patient Mode of arrival: ambulatory Limitations: no limitations History of Present Illness HPI Narrative: Lise is a 27-year-old female patient presenting to the clinic today with complaints of cough and chest tightness x2 days. She reports she does have a history of getting bronchitis multiple times per year. She denies any history of known asthma. She reports she has a dry cough currently that she is unable to bring up any production. She denies any fever or chills. MD elicited complaint: sore throat and nasal congestion Related Data Home Medications Medication Instructions Recorded Confirmed montelukast 10 mg tablet 10 mg PO DAILY 01/20/22 02/20/22 quetiapine 50 mg tablet 50 mg PO DAILY 02/01/22 02/20/22 Allergies Allergy/AdvReac Type Severity Reaction Status Date / Time hydrocodone Allergy Severe Hives Verified 02/20/22 14:33 Review of Systems Review of Systems: Pertinent positives per HPI. Patient denies any fever, chills, rash, headache, visual changes, dizziness, chest pain, palpitations, nausea, vomiting, diarrhea, constipation, abdominal pain, or any urinary issues. [facility] Past Medical History Medical History COVID-19 virus infection December 2019 Depression Gestational diabetes History of vaginal delivery x 2 Kidney disease Kidney stones, calcium oxalate PTSD (post-traumatic stress disorder) Surgical History Surgical History H/O lithotripsy History of appendectomy Family History Family History Father Family history of elevated blood lipids Cerebrovascular accident Family history of diabetes mellitus in first degree relative Family history of coronary artery disease Diabetes mellitus Hypertension Acute myocardial infarction Mother Family history of elevated blood lipids Family history of multiple sclerosis Hypertension Grandparent Carcinoma of colon Diabetes mellitus Family history of malignant neoplasm of male breast Sibling Asthma Family history of chronic obstructive pulmonary disease Family history of seizure disorder Other Family history of allergic disorder Family history of malignant neoplasm Social History Social History Smoking status: Never smoker Second hand tobacco smoke exposure: Yes (FOB vapes) Smoking end date: 02/25/14 Alcohol intake: never Substance use: never Gender identity (if verbalized by the patient): Female Spiritual care concerns: No Comments At the time of my signature, I reviewed and agree with the nursing past medical, surgical, social, and family history. There is no relevant family history pertinent to the patient complaint. Exam Narrative: General: Well-developed, well nourished, in no apparent distress Head: Normocephalic, atraumatic Eyes: Pupils equally round and reactive to light bilaterally, EOM intact, sclera and conjunctive clear, no discharge, lids normal Ears: TMs intact and clear, ear canals clear, no drainage, grossly hearing normal. Nose: Nares patent, clear discharge, no inflammation, no sinus tenderness. Mouth: Oral pharynx without lesions or masses, good dentition, MMM. Neck: Supple, trachea midline, no enlargement of anterior or posterior cervical nodes, no thyroid masses or goiter palpable. Cardio: Regular rate and rhythm, s1 and s2 normal, no murmur appreciated. Resp: Clear to auscultation bilaterally, no rhonchi, rales, wheezing or rubs Course Course Emergency Course: Portions of this record may have been created with voice recognition software. Level of Care: Express Car
== END 2022-02-20 15:06 | disposition home or self-care (01) ==
PROVIDERS: Emergency Provider Nurse Practitioner Family; PCP Nurse Practitioner Family
DX: J40 Bronchitis, not specified as acute or chronic (principal); Z20.822 Contact with and (suspected) exposure to COVID-19; Z86.16 Personal history of COVID-19
CPT/HCPCS: 87426; 99213; C9803; G0463

== ENCOUNTER 2022-04-08 09:21 | Emergency (ER) | payer BC, MEDICAID, SELFPAY ==
--- NOTE | ~2022-04-08 | XR_ITS ---
XR chest 2V DATE: 04/08/2022 09:38 INDICATION: Cough. Flu. TECHNIQUE: PA and lateral views COMPARISON: April 07, 2020 PA and lateral chest FINDINGS: Normal heart size. No hilar or mediastinal enlargement. The lungs are clear of infiltrate o r consolidation. No pleural effusion or pulmonary vascular congestion or pneumothorax. IMPRESSION: Negative Reviewed, dictated and finalized at location A. [employer]PER IMPRESSION: Negative
[2022-04-08 09:27] VITALS: BP 117/77; PULSE 85; RESP 16; TEMP 36.4; O2SAT 99
--- NOTE | 2022-04-08 09:27 | ED.URI ---
HPI - URI/Sore Throat General Chief Complaint: Upper Respiratory Infection Stated Complaint: has flu b, cough is worse Time Seen by Provider: 04/08/22 09:27 Source: patient and RN notes reviewed History of Present Illness HPI Narrative: Patient is a 27-year-old female who presents to urgent care with complaints of worsening cough. Patient states that it started last week with fatigue and she was diagnosed with influenza B on Saturday. Patient was seen at [facility] and was given a 5 day regimen of steroids and Tessalon Perles. Patient denies any recent fevers. States that most symptoms have subsided with the exception of fatigue and cough. Patient states she has completed the prednisone and has been using an old inhaler without much results. Patient denies any shortness of breath however has difficulty deep breathing at times. Denies any chest pain. No other acute complaints. No acute distress noted. Patient aware of plan of care. Some parts of this dictation were generated by voice recognition software and may contain typographical and/or grammatical inaccuracies. Related Data Home Medications Medication Instructions Recorded Confirmed montelukast 10 mg tablet 10 mg PO DAILY 01/20/22 04/08/22 aripiprazole 5 mg tablet 5 mg PO HS 04/08/22 04/08/22 benzonatate 100 mg capsule 100 mg PO Q8H PRN Cough 04/08/22 04/08/22 oseltamivir 6 mg/mL oral suspension 6 mg PO Q12H 04/08/22 04/08/22 Allergies Allergy/AdvReac Type Severity Reaction Status Date / Time hydrocodone Allergy Severe Hives Verified 04/08/22 09:27 Review of Systems Review of Systems: CONSTITUTIONAL: Denies fever, chills, or sweats. Reports fatigue EYES: Denies visual changes, redness, or discharge. ENT: Reports of intermittent nasal congestion and rhinorrhea CARDIOVASCULAR: Denies chest pain, palpitations, or edema. RESPIRATORY: Reports a persistent harsh nonproductive cough with inability to catch her breath GASTROINTESTINAL: Denies abdominal pain, nausea, vomiting, or diarrhea. GENITOURINARY: Denies dysuria or hematuria. SKIN: Denies rash or itching. MUSCULOSKELETAL: Denies back pain, joint pain, or myalgia. NEUROLOGIC: Denies headache, numbness, or weakness. All other systems reviewed are negative, except as documented in HPI. [facility] Past Medical History Medical History COVID-19 virus infection December 2019 Depression Gestational diabetes History of vaginal delivery x 2 Kidney disease Kidney stones, calcium oxalate PTSD (post-traumatic stress disorder) Surgical History Surgical History H/O lithotripsy History of appendectomy Family History Family History Father Family history of elevated blood lipids Cerebrovascular accident Family history of diabetes mellitus in first degree relative Family history of coronary artery disease Diabetes mellitus Hypertension Acute myocardial infarction Mother Family history of elevated blood lipids Family history of multiple sclerosis Hypertension Grandparent Carcinoma of colon Diabetes mellitus Family history of malignant neoplasm of male breast Sibling Asthma Family history of chronic obstructive pulmonary disease Family history of seizure disorder Other Family history of allergic disorder Family history of malignant neoplasm Social History Social History Smoking status: Never smoker Second hand tobacco smoke exposure: Yes (FOB vapes) Smoking end date: 02/25/14 Alcohol intake: never Substance use: never Gender identity (if verbalized by the patient): Female Spiritual care concerns: No Comments At the time of my signature, I reviewed and agree with the nursing past medical, surgical, social, and family hist
[2022-04-08 09:28] VITALS: BP 117/77; PULSE 85; RESP 16; TEMP 36.4; O2SAT 99
== END 2022-04-08 10:07 | disposition home or self-care (01) ==
PROVIDERS: Emergency Provider Nurse Practitioner Family; PCP Nurse Practitioner Family
DX: J10.1 Influenza due to other identified influenza virus with other respiratory manifestations (principal); R05.9 Cough, unspecified
CPT/HCPCS: 71046; 99213; G0463

== ENCOUNTER 2022-10-28 18:56 | Emergency (ER) | payer BC, MEDICAID, SELFPAY ==
--- NOTE | ~2022-10-28 | XR_ITS ---
Clinical Indication: Choking episode PA and lateral views of the chest: Comparison: 04/08/2022 Findings: Probable right nipple shadow noted. The lungs are otherwise clear, without evidence of foca l consolidation or pleural effusion. Cardiomediastinal silhouette is within normal limits. Bones and soft tissues are unremarkable. Impression: No significant abnormality identified. Probable right nipple shadow. Reviewed, dictated and finalized at location .
[2022-10-28 19:14] VITALS: BP 102/57; PULSE 99; RESP 14; TEMP 36.9; O2SAT 100
--- NOTE | 2022-10-28 19:30 | ED.URI ---
HPI - URI/Sore Throat General Chief Complaint: Upper Respiratory Infection Stated Complaint: Cough Time Seen by Provider: 10/28/22 19:30 Source: patient, RN notes reviewed and old records reviewed Mode of arrival: ambulatory Limitations: no limitations History of Present Illness HPI Narrative: 27 year old female who presents to [facility] care with complaints of cough, congestion, sore throat,and some low grade fevers since . Patient reports that she has done home COVID tests that were all negative since also. Patient report her throat has been sore but she thinks it has been from coughing. Patient does have history of asthma and allergies has used her inhalers as prescribed. MD elicited complaint: cough and sore throat Pertinent past history: asthma Onset (ago): day(s) (4) Consistency: constant Severity: mild Able to tolerate fluids by mouth: Yes Treatments prior to arrival: other (inhalers) Related Data Home Medications Medication Instructions Recorded Confirmed aripiprazole 5 mg tablet 5 mg PO HS 04/08/22 10/28/22 oseltamivir 6 mg/mL oral suspension 6 mg PO Q12H 04/08/22 10/28/22 Allergies Allergy/AdvReac Type Severity Reaction Status Date / Time hydrocodone Allergy Severe Hives Verified 10/28/22 19:30 Review of Systems Review of Systems: CONSTITUTIONAL: Denies malaise, chills, sweats, or fever. EYES: Denies visual changes, redness, or discharge. ENT: Reports rhinorrhea, congestion, no sinus pain,no otalgia positive sore throat. CARDIOVASCULAR: Denies chest pain, palpitations, or edema. RESPIRATORY: Reports cough.? reports dyspnea. with exertion GASTROINTESTINAL: Denies abdominal pain, nausea, vomiting, diarrhea SKIN: Denies rash or itching. MUSCULOSKELETAL: Denies myalgia. NEUROLOGIC: Denies headache. All systems reviewed & are unremarkable except as noted in HPI and below PMFSH Past Medical History Medical History COVID-19 virus infection December 2019 Depression Gestational diabetes History of vaginal delivery x 2 Kidney disease Kidney stones, calcium oxalate PTSD (post-traumatic stress disorder) Surgical History Surgical History H/O lithotripsy History of appendectomy Family History Family History Father Family history of elevated blood lipids Cerebrovascular accident Family history of diabetes mellitus in first degree relative Family history of coronary artery disease Diabetes mellitus Hypertension Acute myocardial infarction Mother Family history of elevated blood lipids Family history of multiple sclerosis Hypertension Grandparent Carcinoma of colon Diabetes mellitus Family history of malignant neoplasm of male breast Sibling Asthma Family history of chronic obstructive pulmonary disease Family history of seizure disorder Other Family history of allergic disorder Family history of malignant neoplasm Social History Social History Smoking status: Never smoker Second hand tobacco smoke exposure: Yes (FOB vapes) Smoking end date: 02/25/14 Alcohol intake: never Substance use: never Gender identity (if verbalized by the patient): Female Spiritual care concerns: No Comments At time of signature, agree with nursing past medical, surgical, social and family history. There is no relevant family history pertinent to the presenting complaint Exam Narrative: GENERAL: Well-appearing, well-nourished, and in no acute distress. HEAD: Normocephalic EYES: PERRLA, conjunctivae clear ENT: Nares clear, turbinates edematous and erythematous, clear discharge. Mucous membranes moist. TM pearly ram with dull light reflex bilaterally; no tragal tenderness. Oropharynx erythematous without lesions. T[facility]i
== END 2022-10-28 20:17 | disposition home or self-care (01) ==
PROVIDERS: Emergency Provider Registered Nurse; PCP Nurse Practitioner Family
DX: J45.901 Unspecified asthma with (acute) exacerbation (principal); R09.89 Other specified symptoms and signs involving the circulatory and respiratory systems; Z87.891 Personal history of nicotine dependence; Z86.16 Personal history of COVID-19
CPT/HCPCS: 71046; 87081; 87880; 99213; G0463

== ENCOUNTER 2023-01-31 16:42 | Emergency (ER) | payer BC, MEDICAID, SELFPAY ==
--- NOTE | 2023-01-31 16:51 | ED.GENADULT ---
HPI - General Adult General Chief complaint: Upper Respiratory Infection Stated complaint: sore throat,dizzy,headache Source: patient, RN notes reviewed and old records reviewed Mode of arrival: ambulatory Limitations: no limitations History of Present Illness HPI narrative: 27-year-old female presents to [facility] with complaints of sore throat, headache, sinus congestion, cough and myalgias that started 2 days ago. Patient denies chest pain, dizziness, weakness, shortness of breath, vomiting. Related Data Home Medications Medication Instructions Recorded Confirmed azelastine 137 mcg (0.1 %) nasal intranasal 01/31/23 01/31/23 spray aerosol Allergies Allergy/AdvReac Type Severity Reaction Status Date / Time hydrocodone Allergy Severe Hives Verified 01/31/23 17:01 acetaminophen [From Lortab] Allergy Hives Verified 01/31/23 17:01 Review of Systems Constitutional: Constitutional: Reports as per HPI and Reports body ache(s) Eyes: Eyes: Reports no additional eye complaints ENT: Reports as per HPI, Reports headache(s), Reports nasal congestion and Reports sore throat Cardiovascular: Cardiovascular: Reports no additional cardiovascular complaints Respiratory: Respiratory: Reports as per HPI, Reports chest congestion, Reports cough, Denies pain on inspiration and Denies dyspnea Neurologic: Reports system reviewed and no additional complaints, except as documented PMFSH Past Medical History Medical History COVID-19 virus infection December 2019 Depression Gestational diabetes History of vaginal delivery x 2 Kidney disease Kidney stones, calcium oxalate PTSD (post-traumatic stress disorder) Surgical History Surgical History H/O lithotripsy History of appendectomy Family History Family History Father Family history of elevated blood lipids Cerebrovascular accident Family history of diabetes mellitus in first degree relative Family history of coronary artery disease Diabetes mellitus Hypertension Acute myocardial infarction Mother Family history of elevated blood lipids Family history of multiple sclerosis Hypertension Grandparent Carcinoma of colon Diabetes mellitus Family history of malignant neoplasm of male breast Sibling Asthma Family history of chronic obstructive pulmonary disease Family history of seizure disorder Other Family history of allergic disorder Family history of malignant neoplasm Social History Social History Smoking status: Never smoker Second hand tobacco smoke exposure: Yes (FOB vapes) Smoking end date: 02/25/14 Alcohol intake: never Substance use: never Gender identity (if verbalized by the patient): Female Spiritual care concerns: No Comments At the time of my signature, I reviewed and agree with the nursing past medical, surgical, social, and family history. There is no relevant family history pertinent to the patient complaint. Exam Const: General: cooperative, healthy appearing, no acute distress and well nourished Nutritional Appearance: well nourished Orientation/consciousness: patient oriented x3 Limitations: no limitations HENMT: Head: normal to inspection and normocephalic Ears: external ears normal, TM's normal bilaterally, mastoids normal and Abnormal EAC present Face/Nose/Sinus: normal facial exam Face and sinus: normal facial exam Mouth: Yes Normal oral and palatal mucosa present, Yes oropharynx normal and Yes moist mucous membranes Throat: tonsils normal, uvula midline, posterior oropharynx abnormal erythema; no edema and no exudates and no uvular edema Eyes: General: appearance normal, both eyes and all related structures Sclera: sclerae normal Pupils: Equal, round and reactive pupils
[2023-01-31 16:55] VITALS: BP 131/80; PULSE 73; RESP 16; TEMP 36.9; O2SAT 99
== END 2023-01-31 17:25 | disposition home or self-care (01) ==
PROVIDERS: Emergency Provider Registered Nurse; PCP Nurse Practitioner Family
DX: J06.9 Acute upper respiratory infection, unspecified (principal); Z20.822 Contact with and (suspected) exposure to COVID-19; Z87.891 Personal history of nicotine dependence; Z86.16 Personal history of COVID-19
CPT/HCPCS: 87081; 87880; 99213; G0463

== ENCOUNTER 2023-04-25 16:21 | Emergency (ER) | payer BC, MEDICAID, SELFPAY ==
[2023-04-25 16:29] VITALS: BP 114/73; PULSE 108; RESP 18; TEMP 36.4; O2SAT 99
--- NOTE | 2023-04-25 16:49 | ED.URI ---
HPI - URI/Sore Throat General Chief Complaint: Upper Respiratory Infection Stated Complaint: Sinus Time Seen by Provider: 04/25/23 16:35 Source: patient and RN notes reviewed Mode of arrival: ambulatory Limitations: no limitations History of Present Illness HPI Narrative: Patient presents today with a 2 day history of cough, congestion, chills, body aches, fever up to 102, headache. She has been using a decongestant and cold and flu medicine at home without relief. History of asthma. She uses Arnuity daily and has a rescue albuterol inhaler that she has been using without relief of her wheezing. Related Data Home Medications Medication Instructions Recorded Confirmed azelastine 137 mcg (0.1 %) nasal 137 mcg intranasal DAILY 01/31/23 04/25/23 spray aerosol fluticasone furoate 200 20 mcg inhalation DIRECTED 04/25/23 04/25/23 mcg/actuation blister powder for inhalation (Arnuity Ellipta) Allergies Allergy/AdvReac Type Severity Reaction Status Date / Time hydrocodone Allergy Severe Hives Verified 01/31/23 17:01 acetaminophen [From Lortab] Allergy Hives Verified 01/31/23 17:01 Review of Systems Review of Systems: CONSTITUTIONAL: + body aches, fever, chills EYES: Denies visual changes, redness, or discharge. ENT: Denies rhinorrhea, sore throat, or otalgia.+ congestion CARDIOVASCULAR: Denies chest pain, palpitations, or edema. RESPIRATORY: + cough, wheezing GASTROINTESTINAL: Denies abdominal pain, nausea, vomiting, or diarrhea. GENITOURINARY: Denies dysuria or hematuria. SKIN: Denies rash, itching, or wounds. MUSCULOSKELETAL: Denies back pain, joint pain, or myalgia. NEUROLOGIC: Denies numbness, tingling, or weakness.+ headache PSYCH: Denies depression or anxiety. [facility] Past Medical History Medical History (Updated 04/25/23 @ 16:56 by Erika Schultz, MICHELE, ) Asthma COVID-19 virus infection December 2019 Depression Gestational diabetes History of vaginal delivery x 2 Kidney disease Kidney stones, calcium oxalate PTSD (post-traumatic stress disorder) Surgical History Surgical History H/O lithotripsy History of appendectomy Family History Family History Father Family history of elevated blood lipids Cerebrovascular accident Family history of diabetes mellitus in first degree relative Family history of coronary artery disease Diabetes mellitus Hypertension Acute myocardial infarction Mother Family history of elevated blood lipids Family history of multiple sclerosis Hypertension Grandparent Carcinoma of colon Diabetes mellitus Family history of malignant neoplasm of male breast Sibling Asthma Family history of chronic obstructive pulmonary disease Family history of seizure disorder Other Family history of allergic disorder Family history of malignant neoplasm Social History Social History Smoking status: Never smoker Second hand tobacco smoke exposure: Yes (FOB vapes) Smoking end date: 02/25/14 Alcohol intake: never Substance use: never Gender identity (if verbalized by the patient): Female Spiritual care concerns: No Comments At time of signature, I have reviewed and agree with nursing past medical, surgical, social and family history unless otherwise noted. Please see nursing chart for further information. There is no relevant family history pertinent to the presenting complaint Exam Narrative: GENERAL: Well-appearing, well-nourished, and in no acute distress. HEAD: Normocephalic, atraumatic. EYES: EOMI. No redness or drainage. Conjunctivae normal. ENT: Mucous membranes pink and moist. Nares congestive. No rhinorrhea. TMs normal bilaterally. Throat normal. Uvula midline. NECK: Normal AROM. Supple. No lymphadenopathy. CHEST: No respi
== END 2023-04-25 17:04 | disposition home or self-care (01) ==
PROVIDERS: Emergency Provider Nurse Practitioner; PCP Nurse Practitioner Family
DX: B34.9 Viral infection, unspecified (principal); J45.901 Unspecified asthma with (acute) exacerbation; Z20.822 Contact with and (suspected) exposure to COVID-19; Z86.16 Personal history of COVID-19; Z87.891 Personal history of nicotine dependence
CPT/HCPCS: 87426; 87804; 99213; G0463

== ENCOUNTER 2023-09-08 10:10 | Emergency (ER) | payer BC, MEDICAID, SELFPAY ==
[2023-09-08 10:21] VITALS: BP 125/75; PULSE 68; RESP 16; TEMP 36.5; O2SAT 99
[2023-09-08 10:23] VITALS: BP 125/75; PULSE 68; RESP 16; TEMP 36.5; O2SAT 99
--- NOTE | 2023-09-08 10:40 | ED.GENADULT ---
HPI - General Adult General Chief complaint: Upper Respiratory Infection Stated complaint: chest/throat hurts Time Seen by Provider: 09/08/23 10:40 Source: patient Mode of arrival: ambulatory Limitations: no limitations History of Present Illness HPI narrative: 28-year-old female patient presents [facility] with complaints of cough shortness of breath for the past week. Patient does have history of asthma. Patient states she has been using her rescue inhaler about 4 to 6 times a day. Patient states typically her asthma is allergy induced she does take something for allergies daily. Denies any fevers, body or chills. Related Data Home Medications Medication Instructions Recorded Confirmed azelastine 137 mcg (0.1 %) nasal 137 mcg intranasal DAILY 01/31/23 04/25/23 spray fluticasone furoate 200 20 mcg inhalation DIRECTED 04/25/23 04/25/23 mcg/actuation blister powder for inhalation (Arnuity Ellipta) Allergies Allergy/AdvReac Type Severity Reaction Status Date / Time hydrocodone Allergy Severe Hives Verified 09/08/23 10:23 acetaminophen [From Lortab] Allergy Hives Verified 09/08/23 10:23 Review of Systems Review of Systems: CONSTITUTIONAL: Denies fever, chills, or sweats. EYES: Denies visual changes, redness, or discharge. ENT: Denies rhinorrhea, congestion, sore throat, or otalgia. CARDIOVASCULAR: Denies chest pain, palpitations, or edema. RESPIRATORY: Positive cough with intermittent dyspnea. GASTROINTESTINAL: Denies abdominal pain, nausea, vomiting, or diarrhea. GENITOURINARY: Denies dysuria or hematuria. SKIN: Denies rash or itching. MUSCULOSKELETAL: Denies back pain, joint pain, or myalgia. NEUROLOGIC: Denies headache, numbness, or weakness. PSYCHIATRIC: Denies anxiety or depression. [facility] Past Medical History Medical History Asthma COVID-19 virus infection December 2019 Depression Gestational diabetes History of vaginal delivery x 2 Kidney disease Kidney stones, calcium oxalate PTSD (post-traumatic stress disorder) Surgical History Surgical History H/O lithotripsy History of appendectomy Family History Family History Father Family history of elevated blood lipids Cerebrovascular accident Family history of diabetes mellitus in first degree relative Family history of coronary artery disease Diabetes mellitus Hypertension Acute myocardial infarction Mother Family history of elevated blood lipids Family history of multiple sclerosis Hypertension Grandparent Carcinoma of colon Diabetes mellitus Family history of malignant neoplasm of male breast Sibling Asthma Family history of chronic obstructive pulmonary disease Family history of seizure disorder Other Family history of allergic disorder Family history of malignant neoplasm Social History Social History Smoking status: Never smoker Second hand tobacco smoke exposure: Yes (FOB vapes) Smoking end date: 02/25/14 Alcohol intake: never Substance use: never Gender identity (if verbalized by the patient): Female Spiritual care concerns: No Comments At the time of my signature I agree with nursing past medical history, surgical, social, and family history. There is no relevant family history pertinent to the presenting complaint. Exam Narrative: GENERAL: Well-appearing, well-nourished, and in no acute distress. HEAD: Normocephalic, atraumatic. EYES: PERRLA and EOMI. ENT: Nares clear, no rhinorrhea or epistaxis. Mucous membranes moist. NECK: Supple. No lymphadenopathy CHEST: Clear to auscultation. No respiratory distress. Patient able to talk in clear complete sentences. No wheezing noted. Does have intermittent cough noted during exam. HEART: Regular rate an
== END 2023-09-08 10:54 | disposition home or self-care (01) ==
PROVIDERS: Emergency Provider Nurse Practitioner Family; PCP Nurse Practitioner Family
DX: J45.901 Unspecified asthma with (acute) exacerbation (principal); Z86.16 Personal history of COVID-19
CPT/HCPCS: 99213; G0463

== ENCOUNTER 2023-09-23 18:25 | Emergency (ER) | payer BC, MEDICAID, SELFPAY ==
--- NOTE | ~2023-09-23 | CT_ITS ---
EXAMINATION: CT abdomen pelvis w con DATE: 09/23/2023 23:28 INDICATION: Right upper quadrant abdominal pain TECHNIQUE: Computed tomography (CT) of the abdomen and pelvis was performed with 100 mL Omnipaque-350 intravenous contrast. Automated exposure control and iterative reconstruction technique were employe d. The dose-length product was 1399.65 mGy-cm. COMPARISON: None FINDINGS: Respiratory motion and discoid atelectasis at the bilateral lung bases. Heart size is normal. No armando cardial or pleural effusion. Liver, gallbladder, spleen, pancreas, bilateral adrenal glands are harrison l. Several subcentimeter low-attenuation cysts at both kidneys. Small region of cortical scarring at the lower pole of the right kidney. No bowel obstruction. The appendix is not visualized. No periceca l inflammatory change to suggest acute appendicitis. Bladder, anteverted uterus and left adnexa are u nremarkable. 1.7 cm peripherally enhancing likely corpus luteum cyst at the right ovary. Minimal amou nt of likely physiologic free fluid in the cul-de-sac. No abscess or free intraperitoneal gas. No pat hologically enlarged abdominal or pelvic lymphadenopathy. Bones are unremarkable. IMPRESSION: 1. 1.7 cm right ovarian corpus luteum cyst. No other acute intra-abdominal/pelvic process. Reviewed, dictated and finalized at location A. IMPRESSION: 1. 1.7 cm right ovarian corpus luteum cyst. No other acute intra-abdominal/pelv ic process.
--- NOTE | ~2023-09-23 | CT_ITS ---
EXAMINATION: CT cervical spine wo con DATE: 09/23/2023 23:03 INDICATION: Radiculopathy and neck pain TECHNIQUE: Computed tomography (CT) of the cervical spine was performed without intravenous contrast. Automated exposure control and iterative reconstruction technique were employed. The dose-length pro duct was 434.92 mGy-cm. COMPARISON: None FINDINGS: Slight reversal of the normal cervical lordosis no spondylolisthesis or facet subluxation. Vertebral body heights are normal. No fracture. Mild disc height loss at C2-C3, C5-C6 and C6-C7. Minimal disc h eight loss at C4-C5. Minimal to mild multilevel cervical uncovertebral osteoarthritis. Mild facet ost eoarthritis bilaterally at C2-C3 and bilaterally in the upper thoracic spine with minimal intervening cervical facet osteoarthritis. Posterior disc osteophyte complexes resulting in mild central canal s tenosis at C5-C6 and C6-C7. No significant neural foraminal stenosis. Cervical soft tissues are unrem arkable. Visualized apices of lungs are clear. IMPRESSION: 1. Mild cervical spondylosis. Reviewed, dictated and finalized at location A.
[2023-09-23 18:33] VITALS: BP 128/95; PULSE 101; RESP 24; TEMP 37.2; O2SAT 100
--- NOTE | 2023-09-23 21:25 | ECG_ITS ---
Test Date: 2023-09-23 22:22:13 Measurements Intervals [place] Rate: 97 P: 34 WV: 172 QRS: 11 QRSD: 78 T: 1 QT: 322 QTc: 411 Interpretive Statements SINUS RHYTHM BORDERLINE T WAVE ABNORMALITY- INFERIOR LEADS BASELINE ARTIFACT- I, II, III, AVR, AVL, AVF, V1 BORDERLINE ECG No previous ECG available for comparison Electronically Signed On 09-24-2023 06:25:04 CDT by Paul Manley D.O.
--- NOTE | 2023-09-23 21:27 | ED.NECK ---
HPI - Neck Pain/Injury General Chief Complaint: Neck Pain/Injury Stated Complaint: NECK PAIN/RIGHT ARM PAIN Time Seen by Provider: 09/23/23 21:17 History of Present Illness HPI Narrative: 28-year-old female with reported history of kidney stones and PTSD presents to the emergency department for neck pain and right upper quadrant abdominal pain. Patient states at 7:00 a.m. this morning she began having pain in the neck that radiates down her right upper extremity causes tingling and radiates into her right upper quadrant. She states the pain in her neck is worse when she rotates her neck to the right. She reports nausea but denies emesis. Denies vomiting. Denies abdominal surgeries, dysuria hematuria, fever. Related Data Home Medications Medication Instructions Recorded Confirmed azelastine 137 mcg (0.1 %) nasal 137 mcg intranasal DAILY 01/31/23 09/08/23 spray fluticasone 100 mcg-salmeterol 50 1 ea inhalation BID 09/08/23 09/08/23 mcg/dose blistr powdr for inhalation (Wixela Inhub) Allergies Allergy/AdvReac Type Severity Reaction Status Date / Time acetaminophen [From Lortab] Allergy Severe Swelling Verified 09/08/23 11:16 of Lip/Tongue/Throat hydrocodone Allergy Severe Swelling Verified 09/08/23 11:16 of Lip/Tongue/Throat Review of Systems Review of Systems: All systems reviewed & are unremarkable except as noted in HPI and below PMFSH Past Medical History Medical History Asthma COVID-19 virus infection December 2019 Depression Gestational diabetes History of vaginal delivery x 2 Kidney disease Kidney stones, calcium oxalate PTSD (post-traumatic stress disorder) Surgical History Surgical History H/O lithotripsy History of appendectomy Family History Family History Father Family history of elevated blood lipids Cerebrovascular accident Family history of diabetes mellitus in first degree relative Family history of coronary artery disease Diabetes mellitus Hypertension Acute myocardial infarction Mother Family history of elevated blood lipids Family history of multiple sclerosis Hypertension Grandparent Carcinoma of colon Diabetes mellitus Family history of malignant neoplasm of male breast Sibling Asthma Family history of chronic obstructive pulmonary disease Family history of seizure disorder Other Family history of allergic disorder Family history of malignant neoplasm Social History Social History Smoking status: Never smoker Second hand tobacco smoke exposure: Yes (FOB vapes) Smoking end date: 02/25/14 Alcohol intake: never Substance use: never Gender identity (if verbalized by the patient): Female Spiritual care concerns: No Exam Narrative: GENERAL: Well-appearing, well-nourished, and in no acute distress. HEAD: Normocephalic, atraumatic. EYES: PERRLA and EOMI. ENT: Nares clear, no rhinorrhea or epistaxis. Mucous membranes moist. NECK: Mild midline cervical spinous tenderness without step-offs or deformities. Tenderness to the right trapezius on palpation. Full range of motion of the neck, no Nuchal rigidity. CHEST: Clear to auscultation. No respiratory distress. HEART: Regular rate and rhythm. No murmur heard. Normal peripheral pulses. ABDOMEN: Normoactive bowel sounds. Abdomen soft with tenderness in the right upper quadrant with voluntary guarding. No rebound or rigidity. No CVA tenderness. EXTREMITIES: Normal range of motion. No edema. SKIN: Warm, dry, no rash. NEURO: No focal deficits. Alert and oriented x3. BUE and BLE strength out of 5 throughout. Sensation intact throughout. Radian, medial and ulner nerves intact. No ataxia Course Vital Signs Vital signs:
[2023-09-23] MEDS: SODIUM CHLORIDE 0.9% IV 1,000 ML 999 ML IV CONT (21:44)
[2023-09-23] MEDS: ONDANSETRON INJ 4 MG/2 ML VIAL IV PUSH (21:44)
[2023-09-23 21:59] LABS: Basophils Percent Auto 0.3 % (0.2-1.2); Eosinophils Percent Auto 0.2 % (0-4.4); Hemoglobin 13.8 g/dL (12.0-15.0); Immature Granulocyte Absolute 0.04 K/mm3 (0.00-0.031); Immature Granulocyte Percent A 0.3 % (0-0.5); Lymphocytes Absolute Auto 0.64 K/mm3 (0.9-3.2); Lymphocytes Percent Auto 5.4 % (18.3-44.2); Mean Corpuscular HGB Conc 33.7 g/dl (32-36); Mean Corpuscular Hemoglobin 30.6 pg (26-34); Mean Corpuscular Volume 90.9 fl (80-100); Mean Platelet Volume 10.1 fl (7.4-10.4); Monocytes Absolute Auto 0.4 K/mm3 (0.1-0.6); Monocytes Percent Auto 3.4 % (2.6-8.5); Neutrophils Absolute Auto 10.8 K/mm3 (1.3-6.7); Neutrophils Percent Auto 90.4 % (45.5-73.1); Platelet Count Result 232 k/mm3 (150-375); Red Blood Count 4.51 M/mm3 (4.2-5.4); Red Cell Distribution Width 12.6 % (11.5-14.5); White Blood Count 11.9 K/mm3 (4.5-10.0)
[2023-09-23 22:10] LABS: Alanine Aminotransferase 21 U/L (6-35); Albumin Level 4.3 g/dL (3.5-5.1); Alkaline Phosphatase 94 U/L (38-126); Anion Gap 11 mmol/L (4-12); Aspartate Amino Transferase 17 U/L (14-36); Bilirubin,Total 0.8 mg/dL (0.2-1.3); Blood Urea Nitrogen 12 mg/dL (7-17); Calcium 8.7 mg/dL (8.4-10.2); Carbon Dioxide 22 mmol/L (22-30); Chloride 101 mmol/L (98-107); Estimated CRCL calculation 113 ml/min; Estimated Glomerular Filt Rate > 60; Glucose 114 mg/dL (65-110); Lipase 34 U/L (23-300); Potassium 3.9 mmol/L (3.4-5.0); Sodium 134 mmol/L (137-145)
[2023-09-23 22:11] LABS: Lactic Acid Reflex 1.2 mmol/L (0.7-2.0)
[2023-09-23 22:34] LABS: Appearance Urine Clear (Clear); Bilirubin Urine Negative (Negative); Blood Urine Negative (Negative); Color Urine Yellow (Yellow); Glucose Urine UA Negative (Negative); Ketones Urine Negative (Negative); Leukocyte Esterase Ur 1+ LEU/UL (Negative); Need Manual Microscopic Reviewed; Nitrate Urine Negative (Negative); Non Pathogenic Casts 0-2; Protein Urine Negative (Negative); RBC Urine 0-2 /hpf (0-2); Specific Grav Ur 1.018 (1.001-1.035); Squamous Epithelial Cell Urine Moderate /hpf (Few); Urobilinogen Urine 0.2 mg/dL (<2.0); WBC Urine 0-5 /hpf (0-3); pH Urine 6.5 (5.0-9.0)
[2023-09-23 22:36] LABS: Add Urine Microscopic? YES; Bacteria Urine Trace /hpf
[2023-09-23 22:42] LABS: BEDSIDEPREGUCG Negative
[2023-09-23 22:43] LABS: Pregnancy On Board Control Positive; Urine Pregnancy Test Negative
[2023-09-23 23:24] VITALS: BP 147/67; PULSE 104; RESP 14; TEMP 37; O2SAT 99
[2023-09-23] MEDS: KETOROLAC 30 MG/ML VIAL (*BKC) IV PUSH (23:25)
== END 2023-09-24 00:40 | disposition home or self-care (01) ==
PROVIDERS: Emergency Provider Physician Assistant; PCP Nurse Practitioner Family
DX: M54.12 Radiculopathy, cervical region (principal); N83.11 Corpus luteum cyst of right ovary; R10.11 Right upper quadrant pain; J45.909 Unspecified asthma, uncomplicated; N28.9 Disorder of kidney and ureter, unspecified; Z87.442 Personal history of urinary calculi; Z86.16 Personal history of COVID-19; Z87.891 Personal history of nicotine dependence; Z79.899 Other long term (current) drug therapy
CPT/HCPCS: 36415; 72125; 74177; 80053; 81001; 81025; 83605; 83690; 85025; 93005; 96361; 96374; 96375; 99284; J1885; J2405; J7030; Q9967

== ENCOUNTER 2024-01-06 10:43 | Emergency (ER) | payer BC, MEDICAID, SELFPAY ==
[2024-01-06 11:21] VITALS: BP 136/78; PULSE 83; RESP 20; TEMP 36.8; O2SAT 99
--- NOTE | 2024-01-06 11:35 | ED.URI ---
HPI - URI/Sore Throat General Chief Complaint: Upper Respiratory Infection Stated Complaint: sore throat,asthmatic,chest feels heavyw/constric Time Seen by Provider: 01/06/24 11:26 Source: patient and RN notes reviewed Mode of arrival: ambulatory Limitations: no limitations History of Present Illness HPI Narrative: Patient presents today complaining of one-week history of sore throat and cough with chest tightness over the past 5 days. Denies fever, congestion, rhinorrhea. She has been using some nasal spray in her rescue inhaler without relief. History of asthma. Her stepdaughter at home has had pneumonia on and off for the past 6 weeks and is currently under treatment with antibiotics. Related Data Home Medications Medication Instructions Recorded Confirmed azelastine 137 mcg (0.1 %) nasal 137 mcg intranasal DAILY 01/31/23 01/06/24 spray fluticasone 100 mcg-salmeterol 50 1 ea inhalation BID 09/08/23 01/06/24 mcg/dose blistr powdr for inhalation (Wixela Inhub) Allergies Allergy/AdvReac Type Severity Reaction Status Date / Time acetaminophen [From Lortab] Allergy Severe Swelling Verified 01/06/24 11:13 of Lip/Tongue/Throat hydrocodone Allergy Severe Swelling Verified 01/06/24 11:13 of Lip/Tongue/Throat Review of Systems Review of Systems: CONSTITUTIONAL: Denies body aches, fever, chills, or sweats. EYES: Denies visual changes, redness, or discharge. ENT: Denies rhinorrhea, congestion, or otalgia.+ sore throat CARDIOVASCULAR: Denies chest pain, palpitations, or edema. RESPIRATORY: Cough, chest tightness, shortness of breath. GASTROINTESTINAL: Denies abdominal pain, nausea, vomiting, or diarrhea. GENITOURINARY: Denies dysuria or hematuria. SKIN: Denies rash, itching, or wounds. MUSCULOSKELETAL: Denies back pain, joint pain, or myalgia. NEUROLOGIC: Denies headache, numbness, tingling, or weakness. PSYCH: Denies depression or anxiety. [facility] Past Medical History Medical History Asthma COVID-19 virus infection December 2019 Depression Gestational diabetes History of vaginal delivery x 2 Kidney disease Kidney stones, calcium oxalate PTSD (post-traumatic stress disorder) Surgical History Surgical History H/O lithotripsy History of appendectomy Family History Family History Father Family history of elevated blood lipids Cerebrovascular accident Family history of diabetes mellitus in first degree relative Family history of coronary artery disease Diabetes mellitus Hypertension Acute myocardial infarction Mother Family history of elevated blood lipids Family history of multiple sclerosis Hypertension Grandparent Carcinoma of colon Diabetes mellitus Family history of malignant neoplasm of male breast Sibling Asthma Family history of chronic obstructive pulmonary disease Family history of seizure disorder Other Family history of allergic disorder Family history of malignant neoplasm Social History Social History Smoking status: Never smoker Second hand tobacco smoke exposure: Yes (FOB vapes) Smoking end date: 02/25/14 Alcohol intake: never Substance use: never Gender identity (if verbalized by the patient): Female Spiritual care concerns: No Comments At time of signature, I have reviewed and agree with nursing past medical, surgical, social and family history unless otherwise noted. Please see nursing chart for further information. There is no relevant family history pertinent to the presenting complaint Exam Narrative: GENERAL: Mildly ill-appearing, well-nourished, and in no acute distress. HEAD: Normocephalic, atraumatic. EYES: EOMI. No redness or drainage. Conjunctivae normal. ENT: Mucous membranes pink and moist. Nares clear. No rhinorrhea. TMs normal bilaterally. Throat mildly erythematous without edema or exudate. Uvula midline. NECK: Normal AROM. Supple. No lymphadenopathy. CHEST: No respiratory distress.Slight crackle in the right lower lobe, otherwise clear. HEART: Regular rate and rhythm. No murmur appreciated. EXTREMITIES: Normal range of motion. No edema. SKIN: Warm, dry, no rash. Capillary refill normal. Normal skin turgor. NEURO: No focal deficits. Alert and oriented x3. Gait steady. PSYCH: Normal affect. No signs of depression or anxiety. Course Course Level of Care: Express Care Visit Vital Signs Vital signs: Vital Signs Temperature 98.3 F 01/06/24 11:21 Pulse Rate 83 01/06/24 11:21 Respiratory Rate 20 01/06/24 11:21 Blood Pressure 136/78 01/06/24 11:21 Pulse Oximetry 99 01/06/24 11:21 Oxygen Delivery Room Air 01/06/24 11:21 Temperature 98.3 F 01/06/24 11:21 Pulse Rate 83 01/06/24 11:21 Respiratory Rate 20 01/06/24 11:21 Blood Pressure 136/78 01/06/24 11:21 Pulse Oximetry 99 01/06/24 11:21 Oxygen Delivery Room Air 01/06/24 11:21 Reviewed MDM - URI/Sore Throat MDM Narrative Medical decision making narrative: Patient will be treated with Augmentin and azithromycin as well as prednisone for presumed pneumonia based on physical exam and exposure. Today we do not have x-ray capabilities. Anticipatory guidance given. Differential Diagnosis Differential diagnosis: Likely upper respiratory infection, viral infection, bronchitis and other (Pneumonia, asthma exacerbation) Critical Care Time Critical Care Time Critical Care Time: No Discharge Plan Discharge Clinical Impression: Cough Qualifiers: Cough type: acute Qualified Code(s): R05.1 - Acute cough Asthma exacerbation Qualifiers: Asthma severity: unspecified severity Asthma persistence: unspecified Qualified Code(s): J45.901 - Unspecified asthma with (acute) exacerbation Patient Disposition: Home, Self-Care Condition: Stable Instructions: Antibiotic Form Additional Instructions: Please take all medications as prescribed. Use the DuoNeb treatments for wheezing or shortness of breath. Follow-up with your PCP in 3 days if symptoms are not improving. Go to the ER immediately if symptoms worsen. Your blood pressure was elevated above 120/80 today at Urgent Care. This puts you above the threshold for follow up. Please schedule a followup visit with your personal physician as soon as possible, for further evaluation and treatment. Even blood pressure exceeding 120/80 may indicate pre-hypertension. Prescriptions: New azithromycin 250 mg tablet 250 mg PO DAILY Qty: 6 0RF Rx Instructions: take 500 mg today (day 1), then 250 mg daily on days 2-5. prednisone 50 mg tablet 50 mg PO DAILY 5 Days Qty: 5 0RF amoxicillin-pot clavulanate 875-125 mg tablet 1 tablet PO Q12H 5 Days Qty: 10 0RF ipratropium-albuterol 0.5 mg-3 mg(2.5 mg base)/3 mL solution for nebulization 3 ml inhalation Q4-6H PRN (Reason: shortness of breath or wheezing) Qty: 90 0RF No Action azelastine 137 mcg (0.1 %) aerosol,spray 137 mcg INTRANASAL DAILY albuterol sulfate [Ventolin HFA] 90 mcg/actuation HFA aerosol inhaler 2 puff INHALATION .Q4 hours PRN (Reason: cough) Qty: 18 0RF prednisone 10 mg tablet 10 mg PO DAILY Qty: 21 0RF Rx Instructions: 40 mg daily x3 days, 20 mg daily x3 days, 10 mg daily x3 days fluticasone propion-salmeterol [Wixela Inhub] 100-50 mcg/dose blister with device 1 ea INHALATION BID ibuprofen 800 mg tablet 800 mg PO TID PRN (Reason: pain) Qty: 20 0RF cyclobenzaprine 10 mg tablet 10 mg PO TID PRN (Reason: muscle spasm) Qty: 14 0RF lidocaine 5 % adhesive patch,medicated 1 patch topical DAILY Qty: 15 0RF Rx Instructions: leave on most painful area for up to 12 hrs. do not use more than 1 patch in a 24-hour period. Follow-up/Referrals: Amanda,Lisa Hendricks APRN [Primary Care Provider] - Time of Disposition: 11:43
== END 2024-01-06 12:11 | disposition home or self-care (01) ==
PROVIDERS: Emergency Provider Nurse Practitioner; PCP Nurse Practitioner Family
DX: R05.1 Acute cough (principal); J45.901 Unspecified asthma with (acute) exacerbation; Z86.16 Personal history of COVID-19
CPT/HCPCS: 99213; G0463